=== PATIENT | male | born 1970 | race Caucasian/White ===

== ENCOUNTER 2017-03-26 08:38 | Emergency (ER) | payer SELFPAY ==
[2017-03-26 08:48] VITALS: BP 147/97; PULSE 97; RESP 20; TEMP 37.5; O2SAT 97; BMI 29.7
[2017-03-26 09:12] LABS: Strep Scrn Group A (Rapid) Negative (Negative)
--- NOTE | 2017-03-26 09:27 | HMH.EDGENADL ---
ED Disposition Clinical Impression: Viral infection Disposition: Home, Self-Care Condition on Discharge: Good Instructions: DI for Viral Upper Respiratory Infection -- Adult Prescriptions: Benzonatate [Tessalon Perle 100mg Cap] 100 mg PO TIDP PRN #20 cap PRN Reason: Cough Referrals: Darryl Neves MD [Primary Care Provider] - (If not better by Friday) Forms: Work/School Release - Critical Care Critical Care Time: No Attestation: On , the high probability of a clinically significant, sudden or life threatening deterioration of the following system(s) required my full and direct attention, intervention and personal management. The time I documented below is in addition to time spent performing reported procedures but includes the following listed in this critical care notation. Medical Decision Making Vital Signs: 03/26/17 08:48 03/26/17 10:10 Temperature 99.5 F 99.0 F Temperature Source Oral Oral Pulse Rate [Right Brachial] 97 H 90 Respiratory Rate 20 18 Blood Pressure [Right Arm] 147/97 145/90 Blood Pressure Mean [Right Arm] 113 108 Blood Pressure Source [Right Arm] Manual Cuff/ Doppler Blood Pressure Position [Right Arm] Sitting Sitting 02 Sat by Pulse Oximetry 97 98 Oxygen Delivery Method Room Air Room Air - Lab Data Lab Results 03/26/17 08:45: Influenza Type A Ag Negative, Influenza Type B Ag Negative 03/26/17 08:45: Group A Strep Rapid Negative Orders (Tests/Meds): ORDERS Category Date Time Status Strep Screen Confirmation Stat Micro 03/26/17 08:45 Received - Radiology Data #1 Image(s): Chest Image Reviewed: Yes I reviewed the patient's radiology results Preliminary Findings: Normal/NAD - Dylan Inquiry Pt receiving controlled substance: No General Adult HPI - General Chief complaint: Upper Respiratory Infection Stated complaint: poss flu Mode of Arrival: Ambulatory Limitations: No Limitations Description of Symptoms (Recalled from ER Triage Doc. by RN): PT C/O SNEEZING, RUNNY NOSE, COUGH, BODYACHES - History of Present Illness HPI narrative: The patient has been sick since Friday 4 days ago with body aches, cough, rhinorrhea, sore throat. Cough is nonproductive. His only chest pain is soreness from coughing. No shortness of breath. He does have a history of COPD. States he is not on any medicines. - Related Data Previous Rx's Medication Instructions Recorded Benzonatate [Tessalon Perle 100mg 100 mg PO TIDP PRN #20 cap 03/26/17 Cap] Allergies Allergy/AdvReac Type Severity Reaction Status Date / Time No Known Allergies Allergy Unverified 03/11/17 14:47 [facility] History I have reviewed the patient's past medical history: Yes Medical History: Denies:: Diabetes Mellitus Type 1, Diabetes Mellitus Type 2 - *Social History Smoking Status: Current every day smoker Tobacco Type: cigarettes Alcohol Intake: never - Psychiatric History Expresses thoughts of harming self/others: None Suicide Plan Description: No Plan ROS Obtained: Yes All systems reviewed & no additional complaints except as noted - Constitutional Reports body ache(s), Reports chills, Reports fatigue, Reports malaise - ENT Reports nasal discharge, Reports sore throat - Respiratory Reports cough, Reports pain with cough, Denies shortness of breath Physical Exam - General General appearance: alert, in no apparent distress - Head Head exam: atraumatic, normocephalic, normal inspection - Eye Eye exam: Present: normal appearance, PERRL, EOMI - ENT ENT exam: Present: normal oropharynx, TM's normal bilaterally - Neck Neck exam: Present: normal inspection, full ROM, trachea midline - Chest Chest inspection: Present: normal inspection, symmetric chest wall rise. Absent: tenderness - Respiratory Respiratory exam: Present: normal lung sounds bilaterally. Absent: respiratory distress - Cardiovascular Cardiovascular exam: Present: regular rate
--- NOTE | 2017-03-26 09:31 | XR_ITS ---
XR chest 2V HISTORY: ITS.REASON: cough, fever, tobacco use ORDERING PHYSICIAN: Erwin Langford MD PATIENT AGE: 46 years COMPARISON: 07/02/2016 FINDINGS: The cardiomediastinal silhouette and pulmonary vascularity are within normal limits. The lungs are clear without infiltrates, suspicious nodules, or pleural effusions. No acute bony abnormalities. IMPRESSION: Negative chest, no acute finding
[2017-03-26 10:10] VITALS: BP 145/90; PULSE 90; RESP 18; TEMP 37.2; O2SAT 98
[2017-03-26 10:24] VITALS: BP 155/75; PULSE 84; TEMP 37.2; O2SAT 98
== END 2017-03-26 10:29 | disposition home or self-care (01) ==
LOC: ER 10:23
PROVIDERS: Emergency Provider Emergency Medicine; Family Provider Emergency Medicine; PCP Emergency Medicine
DX: B34.9 Viral infection, unspecified (principal); F17.210 Nicotine dependence, cigarettes, uncomplicated
CPT/HCPCS: 71046; 87275; 87276; 87430; 99283

== ENCOUNTER → 2018-05-14 07:30 | Outpatient (CLI) | payer MEDICAID, SELFPAY ==
--- NOTE | 2018-05-14 07:35 | XR_ITS ---
XR knee RT 3V HISTORY: ITS.REASON: RT KNEE PAIN ORDERING PHYSICIAN: Viji Cordova PATIENT AGE: 48 years COMPARISON: None FINDINGS: No fracture or dislocation. No lytic or blastic change. Normal mineralization. No significant arthritic changes evident. No other significant findings IMPRESSION: Negative Knee
== END ==
PROVIDERS: PCP Nurse Practitioner Family; Visit Provider Nurse Practitioner Family
DX: M25.562 Pain in left knee (principal)
CPT/HCPCS: 73562

== ENCOUNTER 2018-06-29 17:00 | Outpatient (RCR) | payer MEDICAID, SELFPAY | END 2018-07-23 14:58 | disposition home or self-care (01) | LOC: PT 17:00 | PROVIDERS: Visit Provider Orthopaedic Surgery Adult Reconstructive Orthopaedic Surgery | DX: M25.561 Pain in right knee (principal) | CPT/HCPCS: 97010; 97014; 97033; 97110; 97163; G0283 ==

== ENCOUNTER 2021-05-03 08:18 | Emergency (ER) | payer OTHER, SELFPAY ==
[2021-05-03 08:19] VITALS: BP 155/82; PULSE 78; RESP 16; TEMP 36.5; O2SAT 98; BMI 33.9
--- NOTE | 2021-05-03 08:30 | XR_ITS ---
FINAL REPORT CLINICAL HISTORY: fall x 3 weeks ago, increasing pain of right upper arm ckr FINDINGS: RIGHT SHOULDER: 3 views of the right shoulder were obtained. There is no acute fracture or dislocation. There is mild AC joint degenerative change. There is no soft tissue abnormality. IMPRESSION: No acute fracture. Reviewed, Interpreted and Dictated by Jackson Kee III, MD Transcribed by Mandeep Templeton Authenticated by Jackson Kee III, MD on 05/03/2021 10:21:59 AM [facility]
--- NOTE | 2021-05-03 08:30 | XR_ITS ---
FINAL REPORT CLINICAL HISTORY: fall x 3 weeks ago, increasing pain of right upper arm FINDINGS: 2 views of the right humerus were obtained. There is no acute fracture or dislocation. The joint spaces appear intact. There is no acute soft tissue abnormality. IMPRESSION: No acute process. Reviewed, Interpreted and Dictated by Jackson Kee III, MD Transcribed by Mandeep Templeton Authenticated by Jackson Kee III, MD on 05/03/2021 10:22:01 AM [facility]
--- NOTE | 2021-05-03 08:47 | HMH.EDGENADL ---
ED Disposition Clinical Impression: Right shoulder injury Qualifiers: Encounter type: initial encounter Qualified Code(s): S49.91XA - Unspecified injury of right shoulder and upper arm, initial encounter Disposition: Home, Self-Care Condition on Discharge: Good Additional Instructions: Ibuprofen for pain. Follow-up with orthopedics, Dr. Waterman. Call for appointment. Prescriptions: Ibuprofen [Ibuprofen 800mg Tablet] 800 mg PO Q8HP PRN #15 tab PRN Reason: Moderate Pain Transmission Status: Pending to [id number] Referrals: Jai Sams III [Primary Care Provider] - Moisés Waterman JR, MD [Physician] - - Critical Care Critical Care Time: No Attestation: On 05/03/21, the high probability of a clinically significant, sudden or life threatening deterioration of the following system(s) required my full and direct attention, intervention and personal management. The time I documented below is in addition to time spent performing reported procedures but includes the following listed in this critical care notation. Medical Decision Making - Dylan Inquiry Pt receiving controlled substance: No Vital Signs: 05/03/21 08:19 Temperature 97.7 F Temperature Source Oral Pulse Rate [Radial] 78 Respiratory Rate 16 Blood Pressure [Right Arm] 155/82 H Blood Pressure Mean [Right Arm] 106 Blood Pressure Position [Right Arm] Sitting 02 Sat by Pulse Oximetry 98 Oxygen Delivery Method Room Air Orders (Tests/Meds): ORDERS Category Date Time Status Humerus XR right [XR humerus RT] Stat Exams 05/03/21 08:30 Taken XR shoulder RT min 2V Stat Exams 05/03/21 08:30 Taken - Radiology Data #1 Image(s): Shoulder, Humerus Image Reviewed: Yes I reviewed the patient's radiology image No fracture or dislocation seen. Possible cyst of humeral head. No acute process. Medical Decision Narrative: Findings most suggestive of a rotator cuff injury. Will refer to orthopedics. General Adult HPI - General Chief complaint: PAIN Stated complaint: AO [id number] right shoulder pain, home accident Time Seen by Provider: 05/03/21 08:47 Mode of Arrival: Ambulatory Limitations: No Limitations Description of Symptoms (Recalled from ER Triage Doc. by RN): TO ED PER PVT CAR WITH C/O RT SHOULDER AND UPPER ARM PAIN STATES SLIPPED ON ICE FELL LANDING ON RT SHOULDER 3 WEEKS AGO SEEN AT [facility] ED WITH NEG XRAYS. PT STATES SYMPTOMS HAVE NOT IMPROVED AND HAS HAD LIMITED ROM TO SHOULDER - History of Present Illness HPI narrative: States that 3 weeks ago he fell on the ice and landed on his right shoulder. He has had pain ever since then. He says the shoulder pain is diffuse and goes all the way down to his right elbow. He says he went to [facility] emergency department to have x-rays and they told him they were negative. He was referred to Dr. Li for orthopedic follow-up, but did not see him in follow-up because he does not like him. He has not seen his primary care provider either. No numbness or weakness. No other complaints. - Related Data Previous Rx's Medication Instructions Recorded Ibuprofen [Ibuprofen 800mg Tab] 800 mg PO Q8HP PRN #15 tab 03/18/18 methocarbamoL [Robaxin 750mg Tab] 750 mg PO QIDP PRN #20 tab 03/18/18 Ibuprofen [Ibuprofen 800mg 800 mg PO Q8HP PRN #15 tab 05/03/21 Tablet] Allergies Allergy/AdvReac Type Severity Reaction Status Date / Time No Known Allergies Allergy Verified 03/18/18 07:25 [facility] History - Hepatitis A Screen Drug use history?: No High risk sexual behaviors?: No History of sexually transmitted infection?: No Currently employed?: No Childcare worker?: No Do you have indoor plumbing?: Yes Do you have electricity?: Yes Attestation statement:: This patient has been screened for Hepatitis A risk factors. I have reviewed the patient's past medical history: Yes Medical History: Denies:: Diabetes Mellitus Type 1, Diabetes Mellitus Type
[2021-05-03 09:27] VITALS: BP 148/87; PULSE 74; RESP 17; TEMP 36.5; O2SAT 99
== END 2021-05-03 09:29 | disposition home or self-care (01) ==
PROVIDERS: Emergency Provider Emergency Medicine; PCP Family Medicine
DX: S49.91XA Unspecified injury of right shoulder and upper arm, initial encounter (principal); W00.0XXA Fall on same level due to ice and snow, initial encounter; Y92.89 Other specified places as the place of occurrence of the external cause; F17.210 Nicotine dependence, cigarettes, uncomplicated
CPT/HCPCS: 73030; 73060; 99282

== ENCOUNTER → 2023-01-30 23:09 | Outpatient (CLI) | payer OTHER, SELFPAY ==
[2023-01-30 18:11] LABS: Basophils # 0.1 K/mm3 (0-0.2); Basophils % 1.1 % (0.1-2.0); Eosinophils # 0.2 K/mm3 (0.0-0.4); Eosinophils % 1.9 % (0.1-12.0); Hematocrit 48.2 % (42.0-52.0); Hemoglobin 16.6 g/dL (14.1-18.0); Lymphocytes # 2.2 K/mm3 (0.7-4.5); Lymphocytes % 23.6 % (10-50); Mean Corpuscular HGB Conc 34.4 g/dL (31.8-35.4); Mean Corpuscular Hemoglobin 32.2 pg (27.0-31.2); Mean Corpuscular Volume 93.5 fl (80-94); Mean Platelet Volume 10.4 fl (7.4-10.4); Monocytes # 0.8 K/mm3 (0.1-1.0); Monocytes % 8.2 % (1.7-9.3); Neutrophils # 6.1 K/mm3 (1.8-7.8); Neutrophils % 65.2 % (37.0-80.0); Platelet Count 187 K/mm3 (142-424); Red Blood Count 5.16 M/mm3 (4.60-6.20); Red Cell Distribution Width 13.1 % (11.5-17.5); White Blood Count 9.3 K/mm3 (4.8-10.8)
[2023-01-30 20:24] LABS: Alanine Aminotransferase 37 U/L (12-78); Albumin Level 4.1 g/dl (3.5-5.0); Albumin/Globulin Ratio 1.5 (1.1-1.8); Alkaline Phosphatase 57 U/L (38-126); Anion Gap 13.3 mEq/L (5-15); Aspartate Amino Transferase 35 U/L (17-59); Bilirubin,Total 0.4 mg/dl (0.2-1.3); Blood Urea Nitrogen 17 mg/dl (9-20); Calcium 9.3 mg/dl (8.4-10.2); Carbon Dioxide 28 mmol/L (22.0-30.0); Chloride 100 mmol/L (98-107); Chol/HDL Ratio 3.8 (1-3.5); Cholesterol 109 mg/dl (140-200); Estimated Glomerular Filt Rate 70 ml/min (>60); GFR (African American) 84 ML/MIN (>60); Globulin 2.7 g/dL (1.3-3.2); Glucose 100 mg/dl (74-100); HDL Cholesterol 29 mg/dl (40-60); Magnesium 2.1 mg/dl (1.6-2.3); Potassium 4.3 mmoL/L (3.5-5.1); Sodium 137 mmol/L (136-145); Total Protein,Serum 6.8 g/dl (6.3-8.2); Triglycerides 192 mg/dl (30-150); VLDL Cholesterol 38 mg/dL (0-40)
[2023-01-30 20:35] LABS: Direct LDL Cholesterol 63.56 mg/dL (100-129)
[2023-01-30 20:54] LABS: Prostate Specific Ag Screen 0.7 ng/ml (0.0-4.0); Thyroid Stimulating Hormone 5.96 uIU/mL (0.465-4.68)
[2023-01-30 23:06] LABS: Hemoglobin A1C 5.8 % (4.0-6.0)
== END ==
PROVIDERS: PCP Nurse Practitioner Family; Visit Provider Nurse Practitioner Family
DX: E03.9 Hypothyroidism, unspecified (principal); R35.1 Nocturia; Z12.5 Encounter for screening for malignant neoplasm of prostate; Z79.899 Other long term (current) drug therapy
CPT/HCPCS: 80053; 80061; 83036; 83735; 84443; 85025; G0103

== ENCOUNTER 2023-05-02 16:26 | Outpatient (CLI) | payer OTHER, SELFPAY ==
[2023-05-02 17:26] LABS: Thyroid Stimulating Hormone 5.92 uIU/mL (0.465-4.68)
== END 2023-05-02 23:59 ==
LOC: LAB.DROPOF 16:27
PROVIDERS: PCP Nurse Practitioner Family; Visit Provider Nurse Practitioner Family
DX: E03.9 Hypothyroidism, unspecified (principal)
CPT/HCPCS: 84443

== ENCOUNTER 2023-07-18 14:07 | Outpatient (CLI) | payer OTHER, SELFPAY ==
--- NOTE | 2023-07-18 14:11 | CT_ITS ---
FINAL REPORT TECHNIQUE: Axial CT images of the chest were obtained without contrast. Low-dose protocol was utilized. This study was performed with techniques to keep radiation doses as low as reasonably achievable (ALARA). Individualized dose reduction techniques using automated exposure control or adjustment of mA and/or kV according to the patient's size were employed. CLINICAL HISTORY: lung cancer screening current smoker, 2 PPD, 35 years copd, emphysema COMPARISON: None FINDINGS: CT CHEST WITHOUT, LOW DOSE SCREENING CT Di Vol: 2.90 mGy DLP: 100.81 mGy*cm There are lymph nodes in the axilla bilaterally measuring up to 1.8 cm. There is no significant mediastinal mass or adenopathy. The heart size is normal. There is no pleural or pericardial effusion. The lung windows show a 4 mm nodule in the medial right upper lobe best seen on image 25 of series 4. There is scarring in the right middle lobe and lingula. Limited images of the upper abdomen demonstrate no acute findings. IMPRESSION: LR Category 2: 12 month follow-up low-dose chest CT is recommended. Reviewed, Interpreted and Dictated by Greg Velazquez MD Transcribed by Nickie Coates Authenticated and [facility]
[2023-07-18] MEDS: ALBUTEROL 0.083% 2.5 MG/3 ML NEB IH (15:48)
--- NOTE | 2023-07-18 15:48 | PC.NURSE ---
PFT and 6 Minute Walk Test completed without incident, Albuterol 0.083% given via HHN, per written protocol, Pt tolerated tx well.
== END 2023-07-18 23:59 | disposition home or self-care (01) ==
LOC: RAD 14:09
PROVIDERS: PCP Nurse Practitioner Family; Visit Provider Internal Medicine Pulmonary Disease
DX: F17.210 Nicotine dependence, cigarettes, uncomplicated (principal); Z12.2 Encounter for screening for malignant neoplasm of respiratory organs; R06.09 Other forms of dyspnea
CPT/HCPCS: 71271; 94060; 94618; 94726; 94729

== ENCOUNTER 2023-08-19 06:16 | Outpatient (CLI) | payer OTHER, SELFPAY ==
--- NOTE | 2023-08-19 06:17 | CA_ITS ---
APPROVED REPORT EXAM: Comprehensive 2D, Doppler, and color-flow Echocardiogram Elevator Attendant: Arlene Gonzalez RVT Ht: 5 ft 6 in Wt: 217lbs BSA: 2.07 BP: 143/62 mmHg Indications: CP,DYSPENA,SOA,SMOKER TDS-LIMITED WINDOWS R/T BODY HABITUS AND OVERLAYING LUNGS 2D Dimensions LA Volume 35.20 mL LA Volume Index 17.00 mL/m2 (M/F) 16-34 M-Mode Dimensions RVDd 3.24 cm (0.9-2.6) LA Diam 3.58 cm (1.9-4.0) LVDd 4.74 cm (3.5-5.7) LVDs 3.29 cm (3.5-5.7) IVSd 0.99 cm (0.6-1.1) PWd 0.99 cm (0.6-1.1) EF (Teich) 58.00% FS 30.60% EDV (Teich) 104.40 mL ESV (Teich) 43.80 mL LV Diastology E Decel Time 190 (160-240 msec) E/A Ratio 1.0 Aortic Valve DELILAH Index 1.32 cm2/m2 AoV Peak Deyvi. 147.0 (50-130 cm/s) AO Peak GR. 8.60 mmHg AO Mean GR. 5.10 (<5 mmHg) AO VTI 29.3 (18-25 cm) DELILAH (VTI) 2.80 (2.5-4.5 cm2) Mitral Valve MV E Max Deyvi. 80.0 (40-130 cm/s) MV A Velocity 81.0 (40-130 cm/s) E/A Ratio 0.99 MV PHT 56.0 ms Pulmonary Valve PV Peak Velocity 84.0 (50-150 cm/s) Tricuspid Valve TR P. Velocity 225.00 cm/s RAP Estimate 10.00 mmHg RVSP 30.30 mmHg Left Ventricle The left ventricle is normal size. The left ventricular systolic function is normal. The left ventricular ejection fraction is within the normal range. There is increased LV wall thickness. There is normal LV segmental wall motion. The left ventricular diastolic function is normal. LVEF is 55%. Right Ventricle Right ventricle is mildly dilated. Right ventricle is mildly hypokinetic. Atria The left atrium size is normal. The right atrium size is normal. There is no Doppler evidence of interatrial shunt. Aortic Valve The aortic valve is mildly thickened. There is no aortic valvular stenosis. No aortic regurgitation is present. Mitral Valve The mitral valve is normal in structure. No evidence of mitral valve stenosis. There is no mitral valve regurgitation noted. Tricuspid Valve The tricuspid valve leaflets are thin and pliable. Trace tricuspid regurgitation. There is insufficient TR jet to estimate RVSP. Pulmonic Valve The pulmonary valve is normal in structure. Trace pulmonic regurgitation. Great Vessels The aortic root is normal in size. The ascending aorta is normal in size. IVC is normal in size and collapses >50% with inspiration. Pericardium There is no pericardial effusion. Other Information Study Quality: Fair Conclusion Normal LV systolic function. Mildly dilated RV with mild reduction in RV function. No significant valvular stenosis or regurgitation. Electronically signed by : Mercy Louis MD 08/25/2023 11:29:46
--- NOTE | 2023-08-19 06:23 | NM_ITS ---
APPROVED REPORT Exam: Nuclear Stress Test Indication: Chest pain, SOB, Abnormal EKG, HTN, High cholesterol, Tobacco use, Family history Patient Location: Outpatient Stress Tech: Nicole Vazquez [place] Tech:Fannie Li, ARRT, RT (R)(N) Ht: 5 ft 6 in Wt: 220 lbs HR: 80 bpm BP: 133/81 mmHg BSA: 2.08 m2 TID: 1.20 BMI: 35.5 History: Chest pain, SOB, Abnormal EKG, HTN, High cholesterol, Tobacco use, Family history Procedure: Patient received 0.4 mg of intravenous Lexiscan, resting heart rate 80 bpm, resting blood pressure 133/81 mmHg, with Lexiscan maximum heart rate achieved was 103 bpm which is % of the maximum predicted heart rate and blood pressure was 188/81 mmHg. With Lexiscan, patient denied any complaint of chest pain. Patient was not able to do the prone images due to being too SOB. Cardiac Stress and Resting SPECT Images: Cardiac Stress and Resting SPECT images were obtained using technetium 99m Myoview 31.1 mCi stress and 10.33 mCi at rest. The patient could not lie on his abdomen. Therefore, phosphorus imaging could not be performed. This may affect the diagnostic interpretation of the study findings. Resting and stress imaging in supine position demonstrate a large sized, moderate, fixed perfusion defect in the inferior and inferoseptal LV bran. There is borderline increase in transient ischemic dilatation ratio (TID 1.20), suggestive of possible multivessel disease or balanced ischemia. Gated imaging demonstrates normal global LV systolic function. There is mild hypokinesis of the basal inferior LV wall. LVEF is calculated at 56%. Conclusion: Large sized, moderate, fixed perfusion defect in the inferior and inferoseptal LV brna. There is borderline increase in transient ischemic dilatation ratio (TID 1.20), suggestive of possible multivessel disease or balanced ischemia. Gated imaging demonstrates normal global LV systolic function. There is mild hypokinesis of the basal inferior LV wall. LVEF is calculated at 56%. Electronically signed by : Mercy Louis MD 08/25/2023 13:58:01
[2023-08-19] MEDS: SODIUM CHLORIDE 0.9% 10ML SYR (RAD ONLY) 10 ML IV ×2 (08:32)
[2023-08-19] MEDS: ISOTOPE MYOVIEW (PER STUDY) 1 DOSE IV (08:32)
--- NOTE | 2023-08-19 09:31 | CA_ITS ---
APPROVED REPORT Exam: Pharmacologic Technologist: Nicole Ayers, Ht: 5 ft 6 in Wt: 217 lbs BSA: 2.07 m2 HR: 77 bpm BP: 133/81 mmHg Rhythm: NSR Medical History Medications: Levothyroxine,,,,, Aspirin,,,,, Losartan,,,,, Temazepam,,,,, TAMSULOSIN,,,,, Albuterol,,,,, Methocarbamol,,,,, Toprol XL,,,,, RoSUVASTATIN,,,,, CHANTIX,,,,, Diclofenac Sodium,,,,, StIOLto Respimat,,,,, Stress Test Details Test: LEXISCAN Reason for pharmacologic stress test: physical limitation. HR Resting HR: 80 bpm Max Heart Rate (APMHR): 165 bpm Max HR Achieved: 103 bpm Target HR (85% APMHR): 140 bpm % of APMHR: 62 Recovery HR: 76 bpm BP Resting BP: 133.0/81.0 mmHg Max BP: 188.0/81.0 mmHg Recovery BP: 143.0/78.0 mmHg ECG Resting ECG: NSR Stress ECG: No significant ST changes Arrhythmia: None Clinical Exercise duration: 03:56 min Highest Stage Achieved: Exercise capacity: 1.0 METs Stress ECG Conclusion Symptoms: dizziness, dyspnea Arrhythmias/Ectopy: none ST-T Changes: No significant ST changes Conclusion: EKG unremarkable due to Lexiscan infusion. Test Summary REST . . . . . . . Resting REST 11:26 . . 80 . 133/ 81 . . Stage 1 . . . . . . . Myoview Injected Stage 1 01:00 . . 103 . . . . Stage 2 01:00 . . 90 . 188/ 81 . . Stage 3 01:00 . . 83 . . . . Stage 4 00:56 . . 82 . 150/ 63 . Stop exercise at 03:56 RECOVERY 01:00 . . 80 . . . . RECOVERY 02:00 . . 80 . 142/ 85 . . RECOVERY 03:00 . . 76 . 150/ 72 . . RECOVERY 03:30 . . 76 . 143/ 78 . . Electronically signed by : Mercy Louis MD 08/25/2023 13:53:19
== END 2023-08-19 23:59 | disposition home or self-care (01) ==
LOC: RAD 06:17
PROVIDERS: Visit Provider Physician Assistant
DX: R07.89 Other chest pain (principal); R06.09 Other forms of dyspnea; I45.10 Unspecified right bundle-branch block; R94.31 Abnormal electrocardiogram [ECG] [EKG]; Z72.0 Tobacco use
CPT/HCPCS: 78452; 93017; 93018; 93306; A9502

== ENCOUNTER 2023-09-29 07:35 | Day surgery (SDC) | payer OTHER, SELFPAY ==
[2023-09-29] VITALS (10 sets, daily range): BP systolic 100–165; BP diastolic 56–102; PULSE 54–72; RESP 17–18; TEMP 36.7; O2SAT 91–98; BMI 35.5
--- NOTE | 2023-09-29 07:16 | IR_ITS ---
APPROVED REPORT Patient Location: Outpatient Vice President Corporate Communications: DALTON Sanchez RT (R) PROCEDURES Left heart catheterization Left ventriculogram Selective coronary angiogram INDICATION Abnormal Myoview, Angina pectoris Informed consent was obtained prior to the procedure. COMPLICATIONS NONE Estimated Blood Loss: LESS THAN 10 ML TECHNIQUE One percent lidocaine used to anesthetize the right anterior aspect of the wrist. The right radial artery was accessed via the Seldinger technique. A 6 Icelandic sheath was placed in the right radial artery. 2.5 mg of Verapamil, 800 mcg of nitroglycerin, 1mg Lidocaine and 5000 U Heparin were given through the arterial sheath. The papa catheter was also used to perform left heart catheterization, left ventriculogram and selective coronary angiogram. At the end of the procedure the sheath was removed good hemostasis was achieved using Traclet band, patient was transferred to the postop holding area in stable condition. ANGIOGRAPHIC RESULTS The left main artery Normal The left anterior descending artery Has proximal 30% stenosis both before and after the first diagonal artery followed by a mid vessel 40 to 50% stenosis. A medium sized 2 mm first diagonal artery has an ostial proximal 80 to 90% stenosis The circumflex artery Massively large dominant with mild 10% luminal irregularities The right coronary artery Vestigial normal The DIAZ ventriculogram reveals Normal 65% The left ventricular end-diastolic pressure 10 mmHg IMPRESSION Mild proximal and moderate mid LAD disease as described above Severe stenosis and a 2 mm ostial proximal first diagonal artery which is the likely etiology for the angina Normal ejection fraction Normal LVEDP PLAN 1. I favor medical management at this time. Revascularized the diagonal artery with a require bifurcating stents in the proximal LAD into the first diagonal artery. This is highly amenable to medical management at this time 2. Maximize antianginal medication 3. LDL less than 55 to be achieved with high intensity statin 4. Should angina become recalcitrant he can be brought back to the [facility] and undergo revascularization at that time Electronically signed by : Uzair Campbell MD 09/29/2023 10:04:59
[2023-09-29 08:14] LABS: Basophils # 0.1 K/mm3 (0-0.2); Basophils % 1.3 % (0.1-2.0); Eosinophils # 0.3 K/mm3 (0.0-0.4); Eosinophils % 4.1 % (0.1-12.0); Hematocrit 49.7 % (42.0-52.0); Hemoglobin 16.6 g/dL (14.1-18.0); Lymphocytes # 2.3 K/mm3 (0.7-4.5); Lymphocytes % 27.9 % (10-50); Mean Corpuscular HGB Conc 33.4 g/dL (31.8-35.4); Mean Corpuscular Hemoglobin 31.1 pg (27.0-31.2); Mean Corpuscular Volume 93.2 fl (80-94); Mean Platelet Volume 9.4 fl (7.4-10.4); Monocytes # 0.5 K/mm3 (0.1-1.0); Monocytes % 5.5 % (1.7-9.3); Neutrophils # 5.1 K/mm3 (1.8-7.8); Neutrophils % 61.3 % (37.0-80.0); Platelet Count 199 K/mm3 (142-424); Red Blood Count 5.33 M/mm3 (4.60-6.20); Red Cell Distribution Width 13.5 % (11.5-17.5); White Blood Count 8.3 K/mm3 (4.8-10.8)
[2023-09-29 08:22] LABS: Anion Gap 8.2 mEq/L (5-15); Blood Urea Nitrogen 9 mg/dl (9-20); Calcium 9.5 mg/dl (8.4-10.2); Carbon Dioxide 28 mmol/L (22.0-30.0); Chloride 106 mmol/L (98-107); Creatinine Clearance Estimated 107 mL/min (50-200); Estimated Glomerular Filt Rate 69 ml/min (>60); GFR (African American) 84 ML/MIN (>60); Glucose 108 mg/dl (74-100); Potassium 4.2 mmoL/L (3.5-5.1); Sodium 138 mmol/L (136-145)
[2023-09-29] MEDS: NITROGLYCERIN 800MCG/8ML SYR (CATH LAB) 800 MCG IA (09:44)
[2023-09-29] MEDS: diphenhydrAMINE 50MG/ML VIAL 50 MG IV (09:44)
[2023-09-29] MEDS: HEPARIN 1,000 UNITS/ML 10ML VIAL (CATH LAB) 10000 UNIT IV (09:44)
[2023-09-29] MEDS: VERAPAMIL 2.5MG/ML 2ML VIAL 2.5 MG IV (09:44)
[2023-09-29] MEDS: MIDAZOLAM HCL 1MG/1ML 5ML VIAL 1 MG IV (09:45)
[2023-09-29] MEDS: HEPARIN 1,000 UNITS/500ML NS (CATH LAB) 3000 UNIT IV (09:45)
[2023-09-29] MEDS: FENTANYL 100MCG/2ML VIAL 50 MCG IV (09:45)
[2023-09-29] MEDS: LIDOCAINE 1% 10ML MDV 20 ML IJ (09:45)
[2023-09-29] MEDS: 0.9 % SODIUM CHLORIDE 500 ML 25 ML IV (09:45)
--- NOTE | 2023-09-29 10:43 | SUR.PHASEII ---
called and spoke with pt's ,June, regarding procedure completion and discharge time. states she will be here at discharge.
== END 2023-09-29 12:46 | disposition home or self-care (01) ==
PROVIDERS: Visit Provider Internal Medicine
DX: R93.1 Abnormal findings on diagnostic imaging of heart and coronary circulation (principal); F17.210 Nicotine dependence, cigarettes, uncomplicated; I25.118 Atherosclerotic heart disease of native coronary artery with other forms of angina pectoris; Z79.899 Other long term (current) drug therapy; J44.9 Chronic obstructive pulmonary disease, unspecified; I45.10 Unspecified right bundle-branch block; R94.31 Abnormal electrocardiogram [ECG] [EKG]
CPT/HCPCS: 80048; 85025; 93458; 99152; C1725; C1769; J1644; J2250; J3010

== ENCOUNTER 2023-12-05 08:50 | Outpatient (CLI) | payer OTHER, SELFPAY ==
[2023-12-05 17:25] LABS: Albumin Level 4.4 g/dl (3.5-5.0); Chloride 104 mmol/L (98-107); Potassium 4.7 mmoL/L (3.5-5.1); Sodium 140 mmol/L (136-145)
[2023-12-05 17:27] LABS: Blood Urea Nitrogen 13 mg/dl (9-20); Estimated Glomerular Filt Rate 69 ml/min (>60); GFR (African American) 84 ML/MIN (>60)
[2023-12-05 17:28] LABS: Alanine Aminotransferase 33 U/L (12-78); Albumin/Globulin Ratio 1.8 (1.1-1.8); Alkaline Phosphatase 56 U/L (38-126); Anion Gap 10.7 mEq/L (5-15); Aspartate Amino Transferase 33 U/L (17-59); Bilirubin,Total 0.7 mg/dl (0.2-1.3); Calcium 9.4 mg/dl (8.4-10.2); Carbon Dioxide 30 mmol/L (22.0-30.0); Chol/HDL Ratio 3.5 (1-3.5); Cholesterol 111 mg/dl (140-200); Globulin 2.5 g/dL (1.3-3.2); Glucose 73 mg/dl (74-100); HDL Cholesterol 32 mg/dl (40-60); Total Protein,Serum 6.9 g/dl (6.3-8.2); Triglycerides 142 mg/dl (30-150); VLDL Cholesterol 28 mg/dL (0-40)
[2023-12-05 17:39] LABS: Direct LDL Cholesterol 55.13 mg/dL (100-129)
[2023-12-05 17:58] LABS: Thyroid Stimulating Hormone 3.63 uIU/mL (0.465-4.68)
[2023-12-05 20:58] LABS: HIV (1&2) Antibody Rapid NONREACTIVE (NONREACTIVE)
[2023-12-07 10:10] LABS: HCV Ab Non Reactive (Non Reactive)
== END 2023-12-05 23:59 | disposition home or self-care (01) ==
LOC: LAB.DROPOF 12-08 12:46
PROVIDERS: PCP Family Medicine; Visit Provider Family Medicine
DX: E78.2 Mixed hyperlipidemia (principal); I10 Essential (primary) hypertension; Z72.0 Tobacco use
CPT/HCPCS: 80053; 80061; 83036; 84443; 86803; 87389

== ENCOUNTER 2025-01-04 08:00 | Outpatient (CLI) | payer OTHER, SELFPAY ==
--- OUTSIDE RECORDS SUMMARY | 2024-06-26 17:30 | XMS_ITS ---
Author Organization [facility] Address [address] [facility] [address] [place] [address] Care Team Providers Care Deputy Of Counter Intelligence Name Role Phone Silver Enriquez Primary Care Provider Migration, Provider Unavailable Unavailable [facility]IT [facility] Encounter Medications Medication SIG (Take, Route, Frequency, Duration) Notes Start Date End Date Status Rosuvastatin Calcium 10 MG 1 tab(s) orally once a day; Duration: 30 days 02/19/2022 Active Levothyroxine Sodium 50 MCG 1 tab(s) orally once a day; Duration: 30 days 02/19/2022 Active Flomax 0.4 MG 1 CAP(S) ORALLY ONCE A DAY AT BEDTIME; Duration: 30 DAYS *Please review and pick correct strength-formulatio n from [facility] options. If intended option is not shown, discontinue and re-order from Quick Search* 10/08/2021 Active Doxycycline Hyclate 100 MG 1 cap(s) orally 2 times a day; Duration: 10 day(s) 07/18/2022 Active predniSONE 20 MG 1 tab(s) orally once a day; Duration: 7 day(s) 07/18/2022 Active Albuterol Sulfate HFA 108 (90 Base) MCG/ACT 2 puff(s) inhaled every 6 hours as needed; Duration: 30 days 10/08/2021 Active Ipratropium-Albuterol 0.5-2.5 (3) MG/3ML 3 ml by nebulizer 4 times a day as needed; Duration: 30 day(s) Active Diclofenac Sodium 75 MG 1 tab(s) orally 2 times a day; Duration: 30 days Active Advair HFA 230-21 MCG/ACT 2 puff(s) inhaled 2 times a day; Duration: 30 days Active Temazepam 30 MG 1 cap(s) orally once a day (at bedtime); Duration: 30 days 10/16/2022 Active AERO CHAMBER DIRECTED ORALLY DIRECTED; Duration: 30 DAY(S) *Please review for potential replacement for e-prescription and drug interaction check* 04/19/2019 Active Encounters Encounter Location Date Provider Diagnosis [facility] JOVAN [address] [facility] [address] [place] [address] 06/26/2024 Provider Migration COPD exacerbation J44.1 ; Chronic insomnia F51.04 ; COPD (chronic obstructive pulmonary disease) J44.9 ; Benign prostatic hyperplasia with lower urinary tract symptoms N40.1 ; Bilateral primary osteoarthritis of knee M17.0 ; Hypothyroidism (acquired) E03.9 and Hyperlipemia, idiopathic familial E78.5 Assessments Encounter Date Diagnosis (ICD Code) Assessment Notes Treatment Notes Treatment Clinical Notes Section Notes 06/26/2024 COPD exacerbation (ICD-10 - J44.1) 06/26/2024 Chronic insomnia (ICD-10 - F51.04) 06/26/2024 COPD (chronic obstructive pulmonary disease) (ICD-10 - J44.9) 06/26/2024 Benign prostatic hyperplasia with lower urinary tract symptoms (ICD-10 - N40.1) 06/26/2024 Bilateral primary osteoarthritis of knee (ICD-10 - M17.0) 06/26/2024 Hypothyroidism (acquired) (ICD-10 - E03.9) 06/26/2024 Hyperlipemia, idiopathic familial (ICD-10 - E78.5) Plan Of Treatment Medication Medication Name Sig Start Date Stop Date Notes Rosuvastatin Calcium 10 MG 1 tab(s) orally once a day; Duration: 30 days 02/19/2022 Levothyroxine Sodium 50 MCG 1 tab(s) orally once a day; Duration: 30 days 02/19/2022 Flomax 0.4 MG 1 CAP(S) ORALLY ONCE A DAY AT BEDTIME; Duration: 30 DAYS 10/08/2021 *Please review and pick correct strength-formulation from [employer] options. If intended option is not shown, discontinue and re-order from Quick Search* Doxycycline Hyclate 100 MG 1 cap(s) orally 2 times a day; Duration: 10 day(s) 07/18/2022 predniSONE 20 MG 1 tab(s) orally once a day; Duration: 7 day(s) 07/18/2022 Albuterol Sulfate HFA 108 (90 Base) MCG/ACT 2 puff(s) inhaled every 6 hours as needed; Duration: 30 days 10/08/2021 Diclofenac Sodium 75 MG 1 tab(s) orally 2 times a day; Duration: 30 days Advair HFA 230-21 MCG/ACT 2 puff(s) inhaled 2 times a day; Duration: 30 days Temazepam 30 MG 1 cap(s) orally once a day (at bedtime); Duration: 30 days 10/16/2022 Progress Notes * Sylwia CRANDALLeDOB:1970 (54 yo M)Acc No.[id number]:06/26/2024 Patient: Balaji NELSON Provider: Pato Lea :1970 A ge:54 Y S ex:Male Date:06/26/2024 Address:[address] [place] [address] [place], [id number] Pcp:Sivler Enriquez Subjective: * Chief Complaints: * 1 . Mult[facility] To [facility] Conversion Encounter. * Medical History: * Medications: T aking AERO CHAMBER DIRECTED ORALLY DIRECTED , Notes to Pharmacist: *Please review for potential replacement for e-prescription and drug interaction check*, Taking Ipratropium-Albuterol 0.5-2.5 (3) MG/3ML Solution 3 ml by nebulizer 4 times a day as needed Objective: * Vitals: Assessment: * Assessment: 1. C OPD exacerbation - J44.1 (Primary) 2 . C hronic insomnia - F51.04 3 . B enign prostatic hyperplasia with lower urinary tract symptoms - N40.1 ? 4 . C OPD (chronic obstructive pulmonary disease) - J44.9 5 . B ilateral primary osteoarthritis of knee - M17.0 6 . H ypothyroidism (acquired) - E03.9 7 . H yperlipemia, idiopathic familial - E78.5 Plan: * Treatment: 2. C hronic insomnia Refill Temazepam Capsule, 30 MG, 1 cap(s), orally, once a day (at bedtime), 30 days, 30, Refills 2.? 3. B enign prostatic hyperplasia with lower urinary tract symptoms Refill Flomax CAPSULE, 0.4 MG, 1 CAP(S), ORALLY, ONCE A DAY AT BEDTIME, 30 DAYS, 30, Refills 2, Notes to Pharmacist: *Please review and pick correct strength-formulation from [employer] options. If intended option is not shown, discontinue and re-order from Quick Search*. 4. C OPD (chronic obstructive pulmonary disease) Refill Advair HFA Aerosol, 230-21 MCG/ACT, 2 puff(s), inhaled, 2 times a day, 30 days, 1, Refills 2; R efill Albuterol Sulfate HFA Aerosol Solution, 108 (90 Base) MCG/ACT, 2 puff(s), inhaled, every 6 hours as needed, 30 days, 1, Refills 2. 5. B ilateral primary osteoarthritis of knee Refill Diclofenac Sodium Tablet Delayed Release, 75 MG, 1 tab(s), orally, 2 times a day, 30 days, 60, Refills 2. 6. H ypothyroidism (acquired) Refill Levothyroxine Sodium Tablet, 50 MCG, 1 tab(s), orally, once a day, 30 days, 30, Refills 2.? 7. H yperlipemia, idiopathic familial Refill Rosuvastatin Calcium Tablet, 10 MG, 1 tab(s), orally, once a day, 30 days, 30, Refills 2.? * * Electronic signature of Prov ider Migration on 01/05/2025 at 12:08 PM EDT Sign off status: Pending * Provider: Pato gaspar Migration Date: 0 06/26/2024 Generated for Marcelina plasencia/Dl/Ehsan on: 1 12:08 PM EDT
[2025-01-04 19:30] LABS: Hematocrit 48.7 % (42.0-52.0); Hemoglobin 15.5 g/dL (14.1-18.0); Immature Granulocytes % 0.2 %; Mean Corpuscular HGB Conc 31.8 g/dL (31.8-35.4); Mean Corpuscular Hemoglobin 30.2 pg (27.0-31.2); Mean Corpuscular Volume 94.7 fl (80-94); Nucleated Red Blood Cells % 0 %; Platelet Count 201 K/mm3 (142-424); Red Blood Count 5.14 M/mm3 (4.60-6.20); Red Cell Distribution Width-SD 45.0 fL; White Blood Count 8.5 K/mm3 (4.8-10.8)
[2025-01-04 20:05] LABS: Albumin Level 4.2 g/dl (3.5-5.0)
[2025-01-04 20:06] LABS: Chloride 99 mmol/L (98-107); Potassium 4.6 mmoL/L (3.5-5.1); Sodium 138 mmol/L (136-145)
[2025-01-04 20:08] LABS: Alanine Aminotransferase 29 U/L (12-78); Anion Gap 16.6 mEq/L (5-15); Aspartate Amino Transferase 37 U/L (17-59); Bilirubin,Total 0.6 mg/dl (0.2-1.3); Blood Urea Nitrogen 13 mg/dl (9-20); Carbon Dioxide 27 mmol/L (22.0-30.0); Creatinine,Serum 1.00 mg/dl (0.66-1.25); Estimated Glomerular Filt Rate 77 ml/min (>60); GFR (African American) 94 ML/MIN (>60)
[2025-01-04 20:09] LABS: Albumin/Globulin Ratio 1.6 (1.1-1.8); Alkaline Phosphatase 57 U/L (38-126); Calcium 8.8 mg/dl (8.4-10.2); Cholesterol 123 mg/dl (140-200); Globulin 2.6 g/dL (1.3-3.2); Glucose 71 mg/dl (74-100); HDL Cholesterol 33 mg/dl (40-60); Total Protein,Serum 6.8 g/dl (6.3-8.2); Triglycerides 132 mg/dl (30-150)
[2025-01-04 20:38] LABS: Thyroid Stimulating Hormone 7.72 uIU/mL (0.465-4.68)
--- OUTSIDE RECORDS SUMMARY | 2025-01-05 12:09 | XMS_ITS | Encounter Summary ---
Author Organization [employer] ([place], [place], [place], [place]) Address [address] [place] [address] Care Team Providers Care Clinical Education Specialist Name Role Phone Unavailable Primary Care Provider Unavailabl e Encounter Details Date Type Department Care Team (Late st Contact Info) Description 04/05/2018 Transcribed Document [facility] [place] [address] ProviderStephan [place] [address] Social History Tobacco Use Types Packs/Day Years Used Date Smoking Tobacco: Never Assessed Sex and Gender Information Value Date Recorded Sex Assigned at Male 09/18/2021 5:57 PM CDT Legal Sex Male 5:57 PM CDT Gender Identity Male 09/18/2021 5:57 PM CDT Sexual Orientation Not on file documented as of this encounter Miscellaneous Notes * Cerner Conversion Note - Stephan ProviderMD - 04/05/2018 2:52 PM MASTIC FLOOR LAYER [address] [place] [address] Patient Information Name: BALAJI CRANDALL Age: 48 Years Date of : 1970 Arrival Time: 04/05/2018 13:55:00 Diagnosis Primary Care Physician: JESSICA SPEAR DR Provider Information Primary Provider: Secondary Provider: PRANAV CRANDALLFOREIGN Malik has been given the following list of patient education materials, prescriptions and follow-up instructions: Follow-up Instructions: Patient Education Materials: Allergies: No Known Medication Allergies Medication Information: Laboratory or Other Results This Visit (last charted value for your 04/05/2018 visit) No Laboratory or Other Results This Visit Medication Comment: Procedures: Laboratory Orders No laboratory orders were placed. Radiology Orders No radiology orders were placed. Cardiology Orders No cardiology orders were placed. This statement is to verify that BALAJI CRANDALL was seen at [facility] Emergency Department on ,04/05/2018 14:52:45. This is not a work excuse, if a work excuse was needed it will be in addition to this statement as a separate form. IMPORTANT: The examination and treatment you have received in the Emergency Department has been done to provide an appropriate evaluation and stabilizing treatment on an emergency basis only. Given the limited resources, it is not meant to be a substitute for complete medical care. The follow-up doctor you named will receive a copy of your records and all test reports. IT IS IMPORTANT THAT YOU SCHEDULE A FOLLOW-UP APPOINTMENT AND ARE RE-EVALUATED. You should report any new complaints, symptoms, or remaining problems at that time. IT IS IMPOSSIBLE FOR THE EMERGENCY DEPARTMENT TO RECOGNIZE AND TREAT ALL ELEMENTS OF INJURY OR ILLNESS IN A SINGLE VISIT. If you have been referred to a specialist physician, it means that we believe you may have a condition that requires the expertise of a specialist. KEEP IN MIND THAT THE SPECIALIST HAS HIS/HER OWN OFFICE POLICIES WHICH MAY REQUIRE PROPER INSURANCE OR PAYMENT UP FRONT BEFORE THE SPECIALIST WILL SEE YOU. It is your responsibility to call the specialist physician to make an appointment. We do not have the ability to identify specialists/physicians that work with specific insurance companies. Please be advised that all financial charges or billing practices are determined by that practice, not the hospital. If your insurance company requires that you see a specialist from their approved list, it is your responsibility to contact your insurance company to make those arrangements. It is also your responsibility to follow any other requirements of your insurance company necessary to obtain coverage for claims submitted. If you had special tests, such as EKG???s or X-rays, the interpretation of your tests given to you by the Emergency Dept. Physician is a preliminary report. Some fractures and illnesses fail to show up on preliminary tests. We will review them again within 24-48 hours. We will call you if there are any new suggestions. If your symptoms continue notify your physician. After you leave, you should follow the instructions below. In all events, you may obtain a copy of your Emergency Department visit from Medical Records. Please call to be directed to this department. We will bill your insurance; however, you are responsible today for any co-pay amounts. You will receive a separate bill for any services you may have received including: emergency, radiology, or pathology physicians. Please be sure we have an accurate contact phone number and address, should we need to call you for any reason. CIGARETTE SMOKING: The facts are clear; cigarette smoking will shorten your life. Smoking can cause many illnesses along the way. As a healthcare provider, ANNIE recommends that you stop smoking. Assistance with quitting is available by contacting 1-656-TEMV-NOW. This is a free resource providing counseling, support, and referral. Or you may contact your personal physician. As part of your treatment plan, your physician may have prescribed a limited course of a controlled substance. This medication may be given to help people with moderate or severe pain or for other medical conditions, but there are risks involved with treatment. Common side effects may include nausea, constipation, drowsiness, sweating, itching, dry mouth, and rash. More serious side effects may include cognitive and motor impairment, like problems with thinking, concentrating, alertness, and movement (e.g. slowed reflexes), and driving and operating heavy machinery can be dangerous. It is important for you to talk to your physician if you have these side effects or questions. These controlled substances can produce physical dependence and be habit-forming if taken for an extended period of time, which means that the body has gotten used to them and may experience withdrawal symptoms if they are abruptly stopped. Withdrawal symptoms can include runny nose, sweating, goose bumps, diarrhea, abdominal cramping, rapid heartbeat, difficulty sleeping, and nervousness. The home medications listed are only as accurate as the information you provided. Please continue taking all of your medications prescribed by your Primary Care Provider unless specifically told to change or discontinue the medication. Please direct any questions regarding your home medications to your Primary Care Provider. YOU ARE THE MOST IMPORTANT FACTOR IN YOUR RECOVERY. ?? Follow your instructions carefully ?? Take your medicines as prescribed ?? Most important, see a provider as discussed. If you do not have a provider, we can provide a list of clinics Confidential This message and accompanying documents are covered by Electronic Communications Privacy Act 18 U.S.C. ???Sections 8349-0946,?? and contain information intended for the specified individual(s) only. This information is confidential. If you are not the intended recipient or an agent responsible for delivering it to the intended recipient, you are hereby notified that you have received the document in error and that any review, dissemination, copying, or the taking of any action based on the contents of this information is strictly prohibited. If you have received this communication in error, please notify us immediately by email, and delete the original message. STROKE is an EMERGENCY [employer] ACT F.A.S.T! FACE ?? Facial droop ?? Uneven smile ARM ?? Arm numbness ?? Arm weakness SPEECH ?? Slurred speech ?? Difficulty speaking or understanding TIME ?? Call 911 and get to the hospital immediately Have the ambulance go to the nearest stroke center. STROKE Risk Factors High blood pressure High cholesterol Heart Disease Diabetes Smoking Heavy alcohol use Physical inactivity and obesity Atrial Fibrillation (irregular heartbeat) Family history of stroke Acknowledgment I hereby acknowledge receipt of these instructions and information above. I understand that I have received Emergency Treatment only which is not a substitute for complete medical care and acknowledge that all of my medical problems may not be known, identified, or treated prior to my release. I UNDERSTAND THE NEED TO ARRANGE FOLLOW-UP CARE WITH THE PHYSICIAN INDICATED. I UNDERSTAND THAT I SHOULD CONTACT MY PHYSICIAN IMMEDIATELY OR RETURN TO THE EMERGENCY DEPARTMENT IF MY CONDITION WORSENS, FAILS TO IMPROVE, OR NEW SYMPTOMS APPEAR. Vital Signs B/P PULSE RESP. RATE TEMPERATURE PULSE OX Signature of Emergency Provider Date / Time Signature of Emergency Nurse Date / Time Reminder: Be sure to sign up for the [facility] patient portal, which gives you 14/10 access to your medical information ??? including these discharge instructions ??? using your computer, smartphone, or tablet. Just go to [facility] to get started. Questions? Call . Acknowledgment I hereby acknowledge receipt of these instructions and information above. I understand that I have received Emergency Treatment only which is not a substitute for complete medical care and acknowledge that all of my medical problems may not be known, identified, or treated prior to my release. I UNDERSTAND THE NEED TO ARRANGE FOLLOW-UP CARE WITH THE PHYSICIAN INDICATED. I UNDERSTAND THAT I SHOULD CONTACT MY PHYSICIAN IMMEDIATELY OR RETURN TO THE EMERGENCY DEPARTMENT IF MY CONDITION WORSENS, FAILS TO IMPROVE, OR NEW SYMPTOMS APPEAR. Signature of Patient / Responsible Person Date / Time Please provide a telephone number where you can be reached. The best time to call is between: It is permissible to leave a message if no answer: Yes____ No____ Nurse Providing Instructions: Emergency Physician: documented in this encounter Plan of Treatment Not on file documented as of this encounter Visit Diagnoses Not on filedocumented in this encounter
--- OUTSIDE RECORDS SUMMARY | 2025-01-05 12:09 | XMS_ITS | Clinical Summary ---
Author Organization [employer] ([place], [place], [place], [place]) Address [address] [place] [address] Care Team Providers Care Hall Coordinator Name Role Phone Unavailable Primary Care Provider Unavailabl e Social History Tobacco Use Types Packs/Day Years Used Date Smoking Tobacco: Never Assessed Sex and Gender Information Value Date Recorded Sex Assigned at Male 09/18/2021 5:57 PM CDT Legal Sex Male 5:57 PM CDT Gender Identity Male 09/18/2021 5:57 PM CDT Sexual Orientation Not on file Plan of Treatment Not on file
--- OUTSIDE RECORDS SUMMARY | 2025-01-05 12:09 | XMS_ITS | Encounter Summary ---
Author Organization [employer] ([place], [place], [place], [place]) Address [address] [place] [address] Care Team Providers Care Microsoft Bi Architect Name Role Phone Unavailable Primary Care Provider Unavailabl e Encounter Details Date Type Department Care Team (Late st Contact Info) Description 03/27/2018 Transcribed Document [facility] [place] [facility] [place] [address] ProviderStephan MD [facility] [place] [address] Social History Tobacco Use Types Packs/Day Years Used Date Smoking Tobacco: Never Assessed Sex and Gender Information Value Date Recorded Sex Assigned at Male 09/18/2021 5:57 PM CDT Legal Sex Male 5:57 PM CDT Gender Identity Male 09/18/2021 5:57 PM CDT Sexual Orientation Not on file documented as of this encounter Miscellaneous Notes * Cerner Conversion Note - Stephan ProviderMD - 03/27/2018 11:04 AM RESEARCH ELECTRICIAN ED Assessment Entered On: 03/27/2018 12:50 EST Performed On: 03/27/2018 12:48 EST by Katie Bonilla RN ED Quick Look Assessment Level of Consciousness : Alert, Awake Affect/Behavior : Appropriate, Calm, Cooperative Orientation : Oriented x 4 Skin Color : Other: pink Skin Temperature : Warm Katie Bonilla RN - 03/27/2018 12:48 EST ED General-Functional Assess Information Obtained From : Patient Preferred Communication Mode : Verbal Communication Barrier : None Primary Language : [place] Helen[place] Any Spiritual/Cultural Needs or Requests : No Currently in Unsafe Situation : No Katie Bonilla RN - 03/27/2018 12:48 EST Social Habits Smoking Status : 10 or more cigarettes (1/2 pack or more)/day in last 30 days Smokeless Tobacco Status : Never Desires Tobacco Cessation Medication : No Reason for No Tobacco Cessation Medication : Refuses FDA approved medications Desires Tobacco Cessation Calc : 1 Katie Bonilla RN - 03/27/2018 12:48 EST Social History (As Of: 03/27/2018 12:50:15 EST) Tobacco: 10 or more cigarettes (1/2 pack or more)/day in last 30 days Smoking Status. (Last Updated: 03/27/2018 11:16:08 EST by NAI MI) Respiratory Breath Sounds Auscultated : Posterior, Anterior, Laterally Respiratory Assessment WDL : WDL with exceptions Cough : Productive Katie Bonilla RN - 03/27/2018 12:48 EST Breath Sounds Assessment Grid All Lobes Breath Sounds : Diminished TRACE : Diminished LLL : Diminished RUL : Diminished RML : Diminished RLL : Diminished Katie Bonilla RN - 03/27/2018 12:48 EST Respiratory Pattern Description : Regular Katie Bonilla RN - 03/27/2018 12:48 EST Oxygen Therapy Oxygen Therapy Mode : Room air Katie Bonilla RN - 03/27/2018 12:48 EST Musculoskeletal Musculoskeletal Assessment WDL : WDL with exceptions Musculoskeletal Assessment Comment : Pt C/O L rib pain X1 day, states I broke a rib coughing. skin intact, resps even and nonlabored. Katie Bonilla RN - 03/27/2018 12:48 EST documented in this encounter Plan of Treatment Not on file documented as of this encounter Visit Diagnoses Not on filedocumented in this encounter
--- OUTSIDE RECORDS SUMMARY | 2025-01-05 12:09 | XMS_ITS | Encounter Summary ---
Author Organization [employer] ([place], [place], [place], [place]) Address [address] [place] [address] Care Team Providers Care Reception Specialist Name Role Phone Unavailable Primary Care Provider Unavailabl e Encounter Details Date Type Department Care Team (Late st Contact Info) Description 03/27/2018 Transcribed Document [facility] [place] [facility] [place] [address] ProviderStephan MD [facility] [place] [address] Social History Tobacco Use Types Packs/Day Years Used Date Smoking Tobacco: Never Assessed Sex and Gender Information Value Date Recorded Sex Assigned at Male 09/18/2021 5:57 PM CDT Legal Sex Male 5:57 PM CDT Gender Identity Male 09/18/2021 5:57 PM CDT Sexual Orientation Not on file documented as of this encounter Miscellaneous Notes * Cerner Conversion Note - Historical ProviderMD - 03/27/2018 1:08 PM MANAGER OF TAX ED Discharge Vital Signs Entered On: 03/27/2018 13:08 EST Performed On: 03/27/2018 13:08 EST by Katie Bonilla RN ED Discharge Vital Signs Peripheral Pulse Rate : 90 bpm Oxygen Saturation : 100 % Oxygen Therapy Mode : Room air Katie Bonilla RN - 03/27/2018 13:08 EST documented in this encounter Plan of Treatment Not on file documented as of this encounter Visit Diagnoses Not on filedocumented in this encounter
--- OUTSIDE RECORDS SUMMARY | 2025-01-05 12:09 | XMS_ITS | Encounter Summary ---
Author Organization [employer] ([place], [place], [place], [place]) Address [address] [place] [address] Care Team Providers Care Program Checker Name Role Phone Unavailable Primary Care Provider Unavailabl e Encounter Details Date Type Department Care Team (Late st Contact Info) Description 04/06/2018 Transcribed Document [facility] 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 [address] [place] [address] PERSON INFORMATION Name BALAJI CRANDALL Age 48 Years 1970 Sex Male Language Macedonian PCP JACQUIE RAE NP-FAM Marital Status Med Service Emergency Medicine Acct# Arrival 04/06/2018 04:58:00 Visit Reason Rib/trunk pain-swelling; Chest pain - Pleuritic; PNEUMONIA GETTING WORSE Acuity 3 - Urgent LOS 000 01:08 Depart Date: 04/06/18 06:06 AM Address: [address] [id number] Comment: PROVIDER INFORMATION Provider Role Assigned Unassigned VANIA SANDOVAL RN ED Nurse 04/06/2018 05:23:10 JOEY URIBE MD ED Physician 04/06/2018 05:42:47 DIAGNOSIS Chest wall pain PHYS DOC NOTES VITALS INFORMATION Vital Sign Triage Latest Temp Source Oral Oral Temp Mode Fahrenheit Fahrenheit Temp Fahrenheit 97.1 Deg F 97.1 Deg F Temp Celsius 02 Sat 100 % 100 % Respiratory Rate 18 Breaths/Min 18 Breaths/Min Peripheral Pulse Rate 71 bpm 71 bpm Apical Heart Rate Blood Pressure 187 mmHg / 99 mmHg 187 mmHg / 99 mmHg Comment: MEDICAL INFORMATION Allergy Info: No Known Medication Allergies Medications: Prescription Display benzonatate (benzonatate 200 mg oral capsule) 1 Cap, Oral, Cap, TID, PRN as needed for cough, do not crush or chew KEEP AWAY FROM CHILDREN, X 7 Day(s), # 21 Cap, 0 Refill(s) ibuprofen (ibuprofen 800 mg oral tablet) 1 Tab, Oral, Tab, Q8H, PRN Pain (Moderate 4-6), X 10 Day(s), # 30 Tab, 0 Refill(s) Comment: DISCHARGE INFORMATION Discharge Disposition: Home Discharge Location: PATIENT EDUCATION INFORMATION Instructions: Chest Wall Pain Follow up: With: Address: When: Follow up with primary care provider Within 2 to 3 days Comments: Use the cough medicine and follow up with you FAMILY Dr by Friday return any problems With: Address: When: JACQUIE RAE Within 2 to 3 days Comment: documented in this encounter Plan of Treatment Not on file documented as of this encounter Visit Diagnoses Not on filedocumented in this encounter
--- OUTSIDE RECORDS SUMMARY | 2025-01-05 12:09 | XMS_ITS | Encounter Summary ---
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 ED Discharge Entered On: 03/27/2018 13:08 EST Performed On: 03/27/2018 13:08 EST by Katie Bonilla RN Discharge Process Patient Disposition : Discharge Personal Belongings With Patient : Yes Patient Education Completed : Yes Teaching Evaluation : Verbalizes understanding IV Discontinued : Not applicable Nursing Documentation Completed : Yes Katie Bonilla RN - 03/27/2018 13:08 EST ED Discharge Discharge To : Home with ambulatory/outpatient follow-up Mode Of Departure : Ambulatory Accompanied By : Unaccompanied Discharge Instructions Reviewed With, Opportunity For Questions Given : Patient Prescriptions Given to Patient : Yes Katie Bonilla RN - 03/27/2018 13:08 EST Electronically signed by Vick[facility] Conversion Support Service Tech Cerner at 07/10/2022 6:49 PM CDT documented in this encounter Plan of Treatment Not on file documented as of this encounter Visit Diagnoses Not on filedocumented in this encounter
--- OUTSIDE RECORDS SUMMARY | 2025-01-05 12:09 | XMS_ITS | Encounter Summary ---
Author Organization [employer] ([place], [place], [place], [place]) Address [address] [place] [address] Care Team Providers Care Pension Administrator Name Role Phone Unavailable Primary Care Provider Unavailabl e Encounter Details Date Type Department Care Team (Late st Contact Info) Description 03/27/2018 Transcribed Document [facility] [place] [facility] [place] [address] ProviderStephan MD [facility] [place] [address] Social History Tobacco Use Types [...] Conversion Note - Stephan ProviderMD - 03/27/2018 1:08 PM COMPOUND MIXER [address] [place] [address] Patient Information Name: BALAJI CRANDALL Age: 47 Years Date of : 1970 Arrival Time: 03/27/2018 11:04:00 Diagnosis Cough; Elevated blood pressure reading; Pneumonia Primary Care Physician: JACQUIE RAE NP-FAM Provider Information Primary Provider: CLARE BROCK Secondary Provider: BALAJI CRANDALL [place] has been given the following list of patient education materials, prescriptions and follow-up instructions: Follow-up Instructions: With: Address: When: JACQUIE RAE Within 2 to 3 days With: Address: When: [facility] Within 2 to 3 days Comments: Please contact the Patient Resource Center at or if you need assistance finding a Primary Care Provider Patient Education Materials: Community-Acquired Pneumonia, Adult Pneumonia is an infection of the lungs. There are different types of pneumonia. One type can develop while a person is in a hospital. A different type, called community-acquired pneumonia, develops in people who are not, or have not recently been, in the hospital or other health care facility. What are the causes? Pneumonia may be caused by bacteria, viruses, or funguses. Community-acquired pneumonia is often caused by Streptococcus pneumonia bacteria. These bacteria are often passed from one person to another by breathing in droplets from the cough or sneeze of an infected person. What increases the risk? The condition is more likely to develop in: ??? People who have?chronic diseases, such as chronic obstructive pulmonary disease (COPD), asthma, congestive heart failure, cystic fibrosis, diabetes, or kidney disease. ??? People who have?early-stage or late-stage HIV. ??? People who have?sickle cell disease. ??? People who have?had their spleen removed (splenectomy). ??? People who have?poor dental hygiene. ??? People who have?medical conditions that increase the risk of breathing in (aspirating) secretions their own mouth and nose. ??? People who have?a weakened immune system (immunocompromised). ??? People who smoke. ??? People who?travel to areas where pneumonia-causing germs commonly exist. ??? People who?are around animal habitats or animals that have pneumonia-causing germs, including birds, bats, rabbits, cats, and farm animals. What are the signs or symptoms? Symptoms of this condition include: ??? A?dry cough. ??? A wet (productive) cough. ??? Fever. ??? Sweating. ??? Chest pain, especially when breathing deeply or coughing. ??? Rapid breathing or difficulty breathing. ??? Shortness of breath. ??? Shaking chills. ??? Fatigue. ??? Muscle aches. How is this diagnosed? Your health care provider will take a medical history and perform a physical exam. You may also have other tests, including: ??? Imaging studies of your chest, including X-rays. ??? Tests to check your blood oxygen level and other blood gases. ??? Other tests on blood, mucus (sputum), fluid around your lungs (pleural fluid), and urine. If your pneumonia is severe, other tests may be done to identify the specific cause of your illness. How is this treated? The type of treatment that you receive depends on many factors, such as the cause of your pneumonia, the medicines you take, and other medical conditions that you have. For most adults, treatment and recovery from pneumonia may occur at home. In some cases, treatment must happen in a hospital. Treatment may include: ??? Antibiotic medicines, if the pneumonia was caused by bacteria. ??? Antiviral medicines, if the pneumonia was caused by a virus. ??? Medicines that are given by mouth or through an IV tube. ??? Oxygen. ??? Respiratory therapy. Although rare, treating severe pneumonia may include: ??? Mechanical ventilation. This is done if you are not breathing well on your own and you cannot maintain a safe blood oxygen level. ??? Thoracentesis. This procedure?removes fluid around one lung or both lungs to help you breathe better. Follow these instructions at home: ??? Take tewh-osr-zcbnczl and prescription medicines only as told by your health care provider. ? Only take?cough medicine if you are losing sleep. Understand that cough medicine can prevent your body?s natural ability to remove mucus from your lungs. ? If you were prescribed an antibiotic medicine, take it as told by your health care provider. Do not stop taking the antibiotic even if you start to feel better. ??? Sleep in a semi-upright position at night. Try sleeping in a reclining chair, or place a few pillows under your head. ??? Do notuse tobacco products, including cigarettes, chewing tobacco, and e-cigarettes. If you need help quitting, ask your health care provider. ??? Drink enough water to keep your urine clear or pale yellow. This will help to thin out mucus secretions in your lungs. How is this prevented? There are ways that you can decrease your risk of developing community-acquired pneumonia. Consider getting a pneumococcal vaccine if: ??? You are older than 65 years of age. ??? You are older than 19 years of age and are undergoing cancer treatment, have chronic lung disease, or have other medical conditions that affect your immune system. Ask your health care provider if this applies to you. There are different types and schedules of pneumococcal vaccines. Ask your health care provider which vaccination option is best for you. You may also prevent community-acquired pneumonia if you take these actions: ??? Get an influenza vaccine every year. Ask your health care provider which type of influenza vaccine is best for you. ??? Go to the dentist on a regular basis. ??? Wash your hands often. Use hand heat set operator if soap and water are not available. Contact a health care provider if: ??? You have a fever. ??? You are losing sleep because you cannot control your cough with cough medicine. Get help right away if: ??? You have worsening shortness of breath. ??? You have increased chest pain. ??? Your sickness becomes worse, especially if you are an older adult or have a weakened immune system. ??? You cough up blood. This information is not intended to replace advice given to you by your health care provider. Make sure you discuss any questions you have with your health care provider. Document Released: 03/10/2006 Document Revised: 07/18/2016 Document Reviewed: 07/05/2015 [employer] Interactive Patient Education ? 2017 [employer]. Allergies: No Known Medication Allergies Medication Information: Prescription Display albuterol (albuterol CFC free 90 mcg/inh inhalation aerosol with adapter) 2 Puff, Inhalation, QID, PRN as needed for wheezing, # 1 Each, 0 Refill(s), Pharmacy: [facility] chlorpheniramine-hydrocodone (Tussionex [employer]Kinetic 10 mg-8 mg/5 mL oral suspension, extended release) 5 mL, Oral, Q12H, # 120 mL, 0 Refill(s) levoFLOXacin (Levaquin 750 mg oral tablet) 1 Tab, Oral, Tab, [id number], X 7 Day(s), # 7 Tab, 0 Refill(s), Pharmacy: [facility] Home Meds Display budesonide-formoterol (Symbicort 80 mcg-4.5 mcg/inh inhalation aerosol) Puff, Inhalation, BID, 0 Refill(s) Laboratory or Other Results This Visit (last charted value for your 03/27/2018 visit) Computed Tomography 03/27/18 11:50:25 CT Chest WO: CT Chest WO Medication Comment: Procedures: Laboratory Orders No laboratory orders were placed. Radiology Orders Name Status CT Chest WO Completed Cardiology Orders No cardiology orders were placed. This statement is to verify that BALAJI CRANDALL was seen at [facility] on ,03/27/2018 13:08:40. This is not a work excuse, if [...] along the way. As a healthcare provider, Best recommends that you stop smoking. Assistance with quitting is available by contacting 7-271-EMOQ-NOW. This is a free resource providing counseling, [...] Electronic Communications Privacy Act 18 U.S.C. ???Sections 4721-2695,?? and contain information intended for the specified [...] sure to sign up for the [facility] patient portal, which gives you 14/10 access to your medical information ??? including these discharge instructions ??? using your computer, smartphone, or tablet. Just go to [employer] to get started. Questions? Call . Acknowledgment [...]
--- OUTSIDE RECORDS SUMMARY | 2025-01-05 12:09 | XMS_ITS | Encounter Summary ---
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 Was seen at [facility] on 03/18 for the same, feeling worse . History of Present Illness The patient presents with cough. The onset was 10 days ago. The course/duration of symptoms is worsening. Character productive: yellow. The degree at onset was minimal. The degree at present is minimal. The exacerbating factor is none. The relieving factor is none. Risk factors consist of smoking. Prior episodes: none. Therapy today: none. Associated symptoms: shortness of breath. Additional history: Mr. Crandall is a 47-year-old male no significant medical problems tells me he coughed so hard approximately 10 days ago that thinks he fractured rib was seen at an outside facility told it was muscle strain states symptoms have persisted presented emergency department for evaluation. Review of Systems Constitutional symptoms: Negative except as documented in HPI. Skin symptoms: Negative except as documented in HPI. Eye symptoms: Negative except as documented in HPI. ENMT symptoms: Negative except as documented in HPI. Respiratory symptoms: Shortness of breath, cough, Sputum production: Yellow. Cardiovascular symptoms: Negative except as documented in HPI. Gastrointestinal symptoms: Negative except as documented in HPI. Genitourinary symptoms: Negative except as documented in HPI. Musculoskeletal symptoms: Negative except as documented in HPI. Neurologic symptoms: Negative except as documented in HPI. Psychiatric symptoms: Negative except as documented in HPI. Endocrine symptoms: Negative except as documented in HPI. Hematologic/Lymphatic symptoms: Negative except as documented in HPI. Allergy/immunologic symptoms: Negative except as documented in HPI. Additional review of systems information: All other systems reviewed and otherwise negative. Health Status Allergies: Allergic Reactions (Selected) No Known Medication Allergies. Medications: (Selected) Inpatient Medications Ordered Levaquin: 750 mg, Oral, 1-Time Documented Medications Documented Symbicort 80 mcg-4.5 mcg/inh inhalation aerosol: Puff, Inhalation, BID, 0 Refill(s), per nurse's notes. Immunizations: Up to date. Past Medical/ Family/ Social History Medical history Reviewed as documented in chart. Surgical history: No active procedure history items have been selected or recorded., Reviewed as documented in chart. Family history: No family history items have been selected or recorded., Reviewed as documented in chart. Social history: Social & Psychosocial Habits Tobacco 03/27/2018 Smoking Status 10 or more cigarettes (1/ , Reviewed as documented in chart. Problem list: Active Problems (1) COPD (chronic obstructive pulmonary disease) , per nurse's notes. Physical Examination Vital Signs Vital Signs/Vital Measures 03/27/2018 11:08 EST Temperature Source Tympanic Temperature Mode Fahrenheit Temperature, Fahrenheit 97.7 Deg F Clinical Temperature, C 36.5 Deg C Peripheral Pulse Rate 78 bpm Respiratory Rate 18 Breaths/Min Systolic Blood Pressure 168 mmHg HI Diastolic Blood Pressure 79 mmHg Oxygen Saturation 79 % LOW . Measurements 03/27/2018 11:08 EST Height Source Stated Height Entry Format Leidy Height/Length, COLOMBIAN (ft) 5 ft Height/Length COLOMBIAN 6 Inch CLINICALHEIGHT 167.64 cm [place] Body Weight 62.88 kg Weight Source, ED Critical estimated dosing weight Weight Entry Format Rush Weight Naur[place] lb 195 lb CLINICALWEIGHT 88.64 kg Body Surface Area (BSA) 1.98 m2 Body Mass Index 31.5 kg/m2 HI . Oxygen Saturation 03/27/2018 11:08 EST Oxygen Saturation 79 % LOW . General: Alert, no acute distress, non-toxic appearence - looks comfortable sitting in bed, Not ill-appearing, Developmental milestones Skin: Warm. Head: Normocephalic. Neck: Supple. Eye: Normal conjunctiva. Ears, nose, mouth and throat: No pharyngeal erythema or exudate. Cardiovascular: Regular rate and rhythm, No murmur. Respiratory: Respirations are non-labored, breath sounds are equal, Scant expiratory wheeze. Back: Normal range of motion. Musculoskeletal: Normal ROM. Neurological: Alert and oriented to person, place, time, and situation, No focal neurological deficit observed. Lymphatics: No lymphadenopathy. Psychiatric: Cooperative, appropriate mood & affect. Medical Decision Making Differential Diagnosis:: Bronchitis, upper respiratory infection, pneumonia, Pleurisy. Documents reviewed: Emergency department nurses' notes, emergency department records, prior records. Chest X-Ray: Radiology Results (Last 48 hours) [id number] -- 03/27/2018 11:04 CT Chest WO (03/27/2018 11:50) Result: CT SCAN OF THE CHEST WITHOUT CONTRAST; 03/27/2018 11:25 AM HISTORY: Acute left chest wall pain.COMPARISON: None.PROCEDURE: Axial images were obtained from the lung apex to the midabdomen by computed tomography. This study was performed with techniquesto keep radiation doses as low as reasonably achievable, (ALARA).Individualized dose reduction techniques using automated exposurecontrol or adjustment of mA and/or kV according to the patient size wereemployed.FINDINGS: CHEST: The heart size is normal. There is no pericardial or pleuraleffusion. There is no adenopathy. Limited images of the upper abdomendemonstrate prior cholecystectomy. Interstitial changes are present inthe base of the right middle lobe. There is a vague lingular opacity,likely atelectatic in nature.IMPRESSION: Lingular opacity is likely secondary to atelectasis.Three-month followup chest CT is recommended.Otherwise, no acute process. . Reexamination/ Reevaluation Course: improving. Pain status: decreased. Assessment: exam improved. Notes: given vitals/exam are all stable; cxr showing pneumonia given antibiotics emergency department will continue at home; PERC negative looks well safe to go home; I offered further workup for possible observation admission he states he would prefer to go home and if he worsens will return to the emergency department; I think this is reasonable; I then discussed diagnosis and treatment plan he states understands and agrees with all; he is safe to go home with PCP follow-up in next 1-2 days; he was given explicit instructions on return precautions if worsens, any further concerns, if fever greater than 101.5 after Tylenol and Motrin he must return to the emergency department or nearest emergency department; noted to have elevated blood pressure emergency department will have follow-up with primary care for five-day blood pressure check to further evaluate and treatment. Impression and Plan Diagnosis Cough - Discharge, Medical Pneumonia - Discharge, Emergency medicine, Medical Elevated blood pressure reading - Discharge, Emergency medicine, Medical Plan Condition: Improved, Stable. Disposition: Medically cleared. Prescriptions: Prescription Rehab Nurse Pharmacy: Tussionex [employer] 10 mg-8 mg/5 mL oral suspension, extended release (Prescribe): 5 mL, Oral, Q12H, 120 mL, 0 Refill(s) Levaquin 750 mg oral tablet (Prescribe): 1 Tab, Oral, [id number], for 7 Day(s), 7 Tab, 0 Refill(s) albuterol CFC free 90 mcg/inh inhalation aerosol with adapter (Prescribe): 2 Puff, Inhalation, QID, PRN: as needed for wheezing, 1 Each, 0 Refill(s), ekasper [id number]. Patient was given the following educational materials: Community-Acquired Pneumonia, Adult. Follow up with: [facility] Within 2 to 3 days Please contact the Patient Resource Center at or if you need assistance finding a Primary Care Provider; JACQUIE RAE Within 2 to 3 days. Counseled: Patient, Pre-hypertension/Hypertension: The patient has been informed that they may have pre-hypertension or Hypertension based on a blood pressure reading in the emergency department. I recommend that the patient call the primary care provider listed on their discharge instructions or a physician of their choice this week to arrange follow up for further evaluation of possible pre-hypertension or Hypertension.. documented in this encounter Plan of Treatment Not on file documented as of this encounter Visit Diagnoses Not on filedocumented in this encounter
--- OUTSIDE RECORDS SUMMARY | 2025-01-05 12:09 | XMS_ITS | Encounter Summary ---
Author Organization [employer] ([place], [place], [place], [place]) Address [address] [place] [address] Care Team Providers Care Family Development Extension Specialist Name Role Phone Unavailable Primary Care Provider Unavailabl e Encounter Details Date Type Department Care Team (Late st Contact Info) Description 04/06/2018 Transcribed Document [facility] [place] [facility] [place] [address] ProviderStephan MD [facility] [place] [address] Social History Tobacco Use Types Packs/Day Years Used Date Smoking Tobacco: Never Assessed Sex and Gender Information Value Date Recorded Sex Assigned at Male 09/18/2021 5:57 PM CDT Legal Sex Male 5:57 PM CDT Gender Identity Male 09/18/2021 5:57 PM CDT Sexual Orientation Not on file documented as of this encounter Miscellaneous Notes * Cerner Conversion Note - Historical ProviderMD - 04/06/2018 6:00 AM STATION INSPECTOR Electronically signed by [facility] Conversion Painting Contractor Cerner at 07/10/2022 6:54 PM CDT documented in this encounter Plan of Treatment Not on file documented as of this encounter Visit Diagnoses Not on filedocumented in this encounter
--- OUTSIDE RECORDS SUMMARY | 2025-01-05 12:09 | XMS_ITS | Referral Summary ---
Author Organization [email or web address] ([place], [place], [place], [place]) Address [address] [place] [address] Care Team Providers Care Health Care Marketing Specialist Name Role Phone Unavailable Primary Care [...]
--- OUTSIDE RECORDS SUMMARY | 2025-01-05 12:09 | XMS_ITS | Patient Health Record ---
Author Organization [facility] JOVAN Address [address] [facility] [address] [place] [address] Care Team Providers Care Black Top Machine Operator Name Role Phone Silver Enriquez Primary Care Provider Migration, Provider Unavailable Unavailable Allergies No Known Allergies Reason For Referral No Information Medications Medication SIG (Take, Route, Frequency, Duration) Notes Start Date End Date Status Rosuvastatin Calcium 10 MG 1 tab(s) orally once a day; Duration: 30 days 02/19/2022 Active Levothyroxine Sodium 50 MCG 1 tab(s) orally once a day; Duration: 30 days 02/19/2022 Active Albuterol Sulfate HFA 108 (90 Base) MCG/ACT 2 puff(s) inhaled every 6 hours as needed; Duration: 30 days 10/08/2021 Active AERO CHAMBER DIRECTED ORALLY DIRECTED; Duration: 30 DAY(S) *Please review for potential replacement for e-prescription and drug interaction check* 04/19/2019 Active Flomax 0.4 MG 1 CAP(S) ORALLY ONCE A DAY AT BEDTIME; Duration: 30 DAYS *Please review and pick correct strength-formulatio n from [employer] options. If intended option is not shown, discontinue and re-order from Quick Search* 10/08/2021 Active Ipratropium-Albuterol 0.5-2.5 (3) MG/3ML 3 ml by nebulizer 4 times a day as needed; Duration: 30 day(s) Active Doxycycline Hyclate 100 MG 1 cap(s) orally 2 times a day; Duration: 10 day(s) 07/18/2022 Active predniSONE 20 MG 1 tab(s) orally once a day; Duration: 7 day(s) 07/18/2022 Active Diclofenac Sodium 75 MG 1 tab(s) orally 2 times a day; Duration: 30 days Active Advair HFA 230-21 MCG/ACT 2 puff(s) inhaled 2 times a day; Duration: 30 days Active Temazepam 30 MG 1 cap(s) orally once a day (at bedtime); Duration: 30 days 10/16/2022 Active Social History Tobacco Use: Social History Observation Description Date Details (start date - stop date) Current Smoker NA - NA Smoking: Question Answer Notes Are you a: current smoker How often do you smoke cigarettes? every day How many cigarettes a day do you smoke? 11-20 Additional Findings: Tobacco User Heavy cigarett e smoker (20-39 cigs/day) Problems Problem Type SNOMED Code ICD Code Onset Dates Problem Status W/U Status Risk Notes Problem Osteoarthritis of knee (765172053) Bilateral primary osteoarthritis of knee (M17.0) Active confirmed Problem COPD - Chronic obstructive pulmonary disease (04185263) COPD (chronic obstructive pulmonary disease) (J44.9) Active confirmed Problem Hypothyroidism (31407726) Hypothyroidism (acquired) (E03.9) Active confirmed Problem Hyperlipidemia (66578864) Hyperlipemia, idiopathic familial (E78.5) Active confirmed Problem Acute exacerbation of chronic obstructive airways disease (591395328) COPD exacerbation (J44.1) Active confirmed Problem Chronic insomnia (616207389) Chronic insomnia (F51.04) Active confirmed Problem Adult stuttering (F98.5) Active confirmed Problem Angina at rest (15333613) Angina at rest (I20.8) Active confirmed Problem Lower urinary tract symptoms due to benign prostatic hypertrophy (18847849992385) Benign prostatic hyperplasia with lower urinary tract symptoms (N40.1) Active confirmed Encounters Encounter Location Date Provider Diagnosis [facility] JOVAN [address] [place] [address] 06/26/2024 Provider Migration COPD exacerbation J44.1 ; [...] 06/26/2024 Chronic insomnia (ICD-10 - F51.04) 06/26/2024 Benign prostatic hyperplasia with lower urinary tract symptoms (ICD-10 - N40.1) 06/26/2024 COPD (chronic obstructive pulmonary disease) (ICD-10 - J44.9) 06/26/2024 Bilateral primary osteoarthritis of knee (ICD-10 - M17.0) 06/26/2024 Hypothyroidism (acquired) (ICD-10 - E03.9) 06/26/2024 Hyperlipemia, idiopathic familial (ICD-10 - E78.5) Plan Of Treatment Pending Test Test Name Order Date MRI : Lumbosacral Spine 10/30/2020 Cardiolite GXT 07/23/2022 Lexiscan Stress Test 08/06/2022 CT Scan : Chest, Lung Cancer Screening 0 07/18/2022 LIPID PANEL, STANDARD (7600) 07/18/2022 COMPREHENSIVE METABOLIC PANEL (29066) CBC (INCLUDES DIFF/PLT) (6399) TSH (899) 07/18/2022 Insurance Providers Payer Name Payer Address Payer Phone Subscriber Number Group Number Insured Name Patient Relationship to Insured Coverage Start Date Coverage End Date [employer] [facility] [address] [address] [place] [phone] [id number] Balaji Fuller Self - patient is the insured Medical (General) History Medical History History ICD Code COPD Negative Cologuard 07/2022 Surgical History Surgery Date(Month/Year) gallbladder surgery 2014
--- OUTSIDE RECORDS SUMMARY | 2025-01-05 12:09 | XMS_ITS | Encounter Summary ---
Author Organization [employer] ([place], [place], [place], [place]) Address [address] [place] [address] Care Team Providers Care Web Search Evaluator Name Role Phone Unavailable Primary Care Provider Unavailabl e Encounter Details Date Type Department Care Team (Late st Contact Info) Description 04/06/2018 Transcribed Document [facility] [place] Family Medicine [facility] [place] [address] ProviderStephan MD [address] [place] [address] Social History Tobacco Use Types Packs/Day Years Used Date Smoking Tobacco: Never Assessed Sex and Gender Information Value Date Recorded Sex Assigned at Male 09/18/2021 5:57 PM CDT Legal Sex Male 5:57 PM CDT Gender Identity Male 09/18/2021 5:57 PM CDT Sexual Orientation Not on file documented as of this encounter Miscellaneous Notes * Cerner Conversion Note - Stephan ProviderMD - 04/06/2018 5:50 AM COMPANY CONTROLLER Patient: BALAJI CRANDALL Age: 48 years Sex: Male : 1970 Associated Diagnoses: Chest wall pain Author: JOEY URIBE MD Basic Information Additional information: Chief Complaint from Nursing Triage Note : Chief Complaint 04/06/2018 5:12 EST Chief Complaint c/o worsening chest wall pain. pt recently dx with pnumonia. pt said no better. . History of Present Illness The patient presents with rib-trunk pain. The onset was 2.5 weeks ago. The course/duration of symptoms is constant and worsening. Location: left, anterior, lateral, lower chest. The character of symptoms is pain. The degree of pain is severe. The degree of bleeding is none. The exacerbating factor is coughing. Risk factors consist of not anticoagulated. Associated symptoms: nausea, denies shortness of breath, denies syncope, denies vomiting and denies back pain. patient was seen at another hospital 2.5wks ago and told broken ribs on Right He was seen here on the 4th and diagnosed with pneumonia (lingular) He states he got a little better but now his chest is hurting worse with coughing. His abdominal muscles are sore too. Psychology Department Chair bowel or bladder c/o. No lightheadedness. No fever or chills. Review of Systems Constitutional symptoms: No fever, no chills. Skin symptoms: No rash, Eye symptoms: Negative except as documented in HPI. ENMT symptoms: Negative except as documented in HPI. Respiratory symptoms: Cough, No shortness of breath, Cardiovascular symptoms: Negative except as documented in HPI. Gastrointestinal symptoms: Negative except as documented in HPI. Musculoskeletal symptoms: Muscle pain, No back pain, Neurologic symptoms: Negative except as documented in HPI. Additional review of systems information: All other systems reviewed and otherwise negative. Health Status Allergies: Allergic Reactions (Selected) No Known Medication Allergies. Past Medical/ Family/ Social History Medical history Cardiovascular: no hypertension, patient states he has white coat syndrome BP normal at home. Respiratory: chronic obstructive pulmonary disease. Surgical history: No active procedure history items have been selected or recorded.. Family history: No family history items have been selected or recorded.. Social history: Social & Psychosocial Habits Tobacco 03/27/2018 Smoking Status 10 or more cigarettes (1/ , heavy smoker. Physical Examination Vital Signs Vital Signs/Vital Measures 04/06/2018 5:12 EST Temperature Source Oral Temperature Mode Fahrenheit Temperature, Fahrenheit 97.1 Deg F Clinical Temperature, C 36.2 Deg C Peripheral Pulse Rate 71 bpm Respiratory Rate 18 Breaths/Min Systolic Blood Pressure 187 mmHg HI Diastolic Blood Pressure 99 mmHg HI Oxygen Saturation 100 % Oxygen Therapy Mode Room air . Measurements 04/06/2018 5:12 EST Height Source Stated Height Entry Format Hubbard Height/Length, SERBIAN (ft) 5 ft Height/Length SERBIAN 6 Inch CLINICALHEIGHT 167.64 cm [place] Body Weight 62.88 kg Weight Source, ED Critical estimated dosing weight Weight Entry Format Hubbard Weight Chilean lb 195 lb CLINICALWEIGHT 88.64 kg Body Surface Area (BSA) 1.98 m2 Body Mass Index 31.5 kg/m2 HI . Oxygen Saturation 04/06/2018 5:12 EST Oxygen Saturation 100 % . General: Alert, no acute distress. Skin: Warm, dry, no rash. Head: Normocephalic, atraumatic. Neck: Supple. Eye: Pupils are equal, round and reactive to light, normal conjunctiva. Ears, nose, mouth and throat: Oral mucosa moist. Cardiovascular: Regular rate and rhythm. Respiratory: Lungs are clear to auscultation, respirations are non-labored, breath sounds are equal, Symmetrical chest wall expansion. Chest wall: L lower ribs from ant ax line ant ribs tender No crepitus, no deformity. Back: Normal range of motion. Musculoskeletal: Normal ROM, normal strength. Gastrointestinal: Soft, superficial tenderness epigastric, and RUQ. Neurological: Alert and oriented to person, place, time, and situation, No focal neurological deficit observed, stutter prominent. Psychiatric: Cooperative. Medical Decision Making Differential Diagnosis: Chest wall pain. Chest X-Ray: Interpretation by Emergency Physician, very sl blunting R base. Reexamination/ Reevaluation pt is approaching 3 weeks out from original inj. I am not concerned about intrabdominal pathology at this point. His pneumonia has cleared I will give him antiinflammatories and cough medicine Impression and Plan Diagnosis Chest wall pain - Discharge, Emergency medicine, Medical Plan Condition: Unchanged. Disposition: Discharged Admit/Transfer/Discharge: Discharge (Order): Start: 04/06/2018 5:58 EST, Discharge to: Home. Prescriptions: Prescription Badger Distiller Operator Pharmacy: ibuprofen 800 mg oral tablet (Prescribe): 1 Tab, Oral, Q8H, for 10 Day(s), PRN: Pain (Moderate 4-6), 30 Tab, 0 Refill(s) benzonatate 200 mg oral capsule (Prescribe): 1 Cap, Oral, TID, for 7 Day(s), do not crush or chew KEEP AWAY FROM CHILDREN, PRN: as needed for cough, 21 Cap, 0 Refill(s). Patient was given the following educational materials: Chest Wall Pain. Follow up with: JACQUIE RAE Within 2 to 3 days; Follow up with primary care provider Within 2 to 3 days Use the cough medicine and follow up with you FAMILY by Friday return any problems. Counseled: Patient, Regarding diagnosis, Regarding diagnostic results, Regarding treatment plan, Regarding prescription. documented in this encounter Plan of Treatment Not on file documented as of this encounter Visit Diagnoses Not on filedocumented in this encounter
--- OUTSIDE RECORDS SUMMARY | 2025-01-05 12:09 | XMS_ITS | Encounter Summary ---
Author Organization [facility] ([place], [place], [place], [place]) Address [address] [place] [address] Care Team Providers Care Scrap Stripper Hand Name Role Phone Unavailable Primary Care Provider Unavailabl e Encounter Details Date Type Department Care Team (Late st Contact Info) Description 03/27/[address] [facility] [place] Family Medicine [facility] [place] [address] ProviderStephan MD [address] [place] [address] Social History Tobacco Use Types Packs/Day [...] - Historical ProviderMD - 03/27/2018 1:08 PM CLASSROOM COORDINATOR [address] [place] [address] PERSON INFORMATION Name BALAJI CRANDALL Age 47 Years 1970 Sex Male Language Danish PCP JACQUIE RAE NP-FAM Marital Status Med Service Emergency Medicine Acct# Arrival 03/27/2018 11:04:00 Visit Reason Rib/trunk pain-swelling; RIB PAIN ON LEFT SIDE Acuity 3 - Urgent LOS 000 02:04 Depart Date: 03/27/18 01:08 PM Address: [address] [address] Comment: PROVIDER INFORMATION Provider Role Assigned Unassigned CLARE BROCK PA-RAMO ED Physician 03/27/2018 11:07:03 Katie Bonilla, IT ARCHITECTURE ANALYST Nurse 03/27/2018 11:21:26 DIAGNOSIS Cough; Elevated blood pressure reading; Pneumonia PHYS DOC NOTES VITALS INFORMATION Vital Sign Triage Latest Temp Source Tympanic Tympanic Temp Mode Fahrenheit Fahrenheit Temp Fahrenheit 97.7 Deg F 97.7 Deg F Temp Celsius 02 Sat 79 % 100 % Respiratory Rate 18 Breaths/Min 18 Breaths/Min Peripheral Pulse Rate 78 bpm 90 bpm Apical Heart Rate Blood Pressure 168 mmHg / 79 mmHg 168 mmHg / 79 mmHg Comment: MEDICAL INFORMATION Allergy Info: No Known Medication Allergies Medications: Prescription Display albuterol (albuterol CFC free 90 mcg/inh inhalation aerosol with adapter) 2 Puff, Inhalation, QID, PRN as needed for wheezing, # 1 Each, 0 Refill(s), Pharmacy: [facility] chlorpheniramine-hydrocodone (Tussionex PennKinetic 10 mg-8 mg/5 mL oral suspension, extended release) 5 mL, Oral, Q12H, # 120 mL, 0 Refill(s) levoFLOXacin (Levaquin 750 mg oral tablet) 1 Tab, Oral, Tab, [id number], X 7 Day(s), # 7 Tab, 0 Refill(s), Pharmacy: [facility] Home Meds Display budesonide-formoterol (Symbicort 80 mcg-4.5 mcg/inh inhalation aerosol) Puff, Inhalation, BID, 0 Refill(s) Comment: DISCHARGE INFORMATION Discharge Disposition: Home Discharge Location: PATIENT EDUCATION INFORMATION Instructions: Community-Acquired Pneumonia, Adult Follow up: With: Address: When: JACQUIE RAE Within 2 to 3 days With: Address: When: [facility] Within 2 to 3 days Comments: Please contact the Patient Resource Center at or if you need assistance finding a Primary Care Provider Comment: documented in this encounter Plan of Treatment Not on file documented as of this encounter Visit Diagnoses Not on filedocumented in this encounter
--- OUTSIDE RECORDS SUMMARY | 2025-01-05 12:09 | XMS_ITS | Encounter Summary ---
Author Organization [employer] [employer] ([place], [place], [place], [place]) Address [address] [place] [address] Care Team Providers Care Animal Humane Agent Supervisor Name Role Phone Unavailable Primary Care Provider Unavailabl e Encounter Details Date Type Department Care Team (Late st Contact Info) Description 04/05/2018 Transcribed Document [facility] [place] [address] [place] [address] ProviderStephan MD [facility] [place] [address] Social History Tobacco Use Types Packs/Day Years Used Date Smoking Tobacco: Never Assessed Sex and Gender Information Value Date Recorded Sex Assigned at Male 09/18/2021 5:57 PM CDT Legal Sex Male 5:57 PM CDT Gender Identity Male 09/18/2021 5:57 PM CDT Sexual Orientation Not on file documented as of this encounter Miscellaneous Notes * Cerner Conversion Note - Historical ProviderMD - 04/05/2018 2:14 PM ENERGY ENGINEER ED Discharge Entered On: 04/05/2018 14:52 EST Performed On: 04/05/2018 14:14 EST by TOMAS MARIE Rn Discharge Process Patient Disposition : AMA/Elope/LWBS Personal Belongings With Patient : Yes TOMAS MARIE Rn - 04/05/2018 14:51 EST LWBS/Elopement/AMA Patient Left Prior To Medical Screening : Unseen Asked to Sign LWBS Form : Form signed TOMAS MARIE Rn - 04/05/2018 14:51 EST Electronically signed by Db Johnston Conversion Rubber Gasket Inspector Trimmer Cerner at 07/10/2022 6:31 PM CDT documented in this encounter Plan of Treatment Not on file documented as of this encounter Visit Diagnoses Not on filedocumented in this encounter
--- OUTSIDE RECORDS SUMMARY | 2025-01-05 12:09 | XMS_ITS | Clinical Summary ---
Author Organization [facility] Address [address] [place] [address] Care Team Providers Care Certified Nuclear Medicine Technologist Name Role Phone Jaden Fernandez MD Primary Care Provider [phone] Allergies No known active allergies Medications Azithromycin (ZITHROMAX Z-JESUS PO) Take by mouth. Activ e tiotropium (SPIRIVA) 18 MCG per inhalation capsuleIndicati ons:Panlobular emphysema,Chron ic bronchitis, unspecified chronic bronchitis type Place 1 capsule into inhaler and inhale Daily. 30 capsule 2 8 Active albuterol (PROVENTIL) (2.5 MG/3ML) 0.083% nebulizer solutionIndicat ions:Panlobular emphysema,Chron ic bronchitis, unspecified chronic bronchitis type Take 2.5 mg by nebulization Every 4 (Four) Hours As Needed for Wheezing. 125 vial 2 8 Active mometasone-form oterol (DULERA) 200-5 MCG/ACT inhaler Inhale 2 puffs 2 (Two) Times a Day. 13 g 3 8 Active albuterol sulfate HFA 108 (90 Base) MCG/ACT inhaler Inhale 2 puffs Every 4 (Four) Hours As Needed for Wheezing. 18 g 2 9 Active Fluticasone Furoate-Vilante rol (BREO ELLIPTA) 200-25 MCG/INH inhalerIndicati ons:Panlobular emphysema Inhale 1 puff Daily. 1 inhaler 3 9 Active budesonide-form oterol (SYMBICORT) 160-4.5 MCG/ACT inhaler Inhale 2 puffs 2 (Two) Times a Day. 1 inhaler 06/19/201 9 Active Active Problems Problem Noted Date Diagnosed Date Obesity (BMI 30.0-34.9) 01/11/2016 Overview (01/11/2016): BMI 32.28 Current every day smoker 01/11/2016 Overview (01/11/2016): He smokes one and a half to 2 packs of cigarettes a day but has smoked up to 3 packs per day in the past. Hemorrhoids 01/11/2016 Emphysema/COPD 01/11/2016 Overview (12/22/2024): Emphysema/COPD (492.8) (J43.9) - A. Long-standing tobacco abuse. B. Changes of emphysema noted on chest x-ray 08/09/2013. Pulmonary function tests showed moderate airways obstruction he did not desaturate 6 minute walk test UPDATING PER 2024 REGULATORY 2024 LOAD Social History Tobacco Use Types Packs/Day Years Used Date Smoking Tobacco: Every Day Comments:Smokes 1 1/2 to 2 P PD but has smoked up to 3 PPD in the past Alcohol Use Standard Drinks/Week Comments No 0 (1 standard drink = 0.6 oz pur e alcohol) Abuse Screen Answer Date Recorded Unsafe at Home or Work/School Not on file Feels Threatened by Someone? Not on file 11/2022 Does Anyone Keep You from Co ntacting Others or Doint Things Outside the Home? Not on file 12/30/2022 Physical Sign of Abuse Present Not on file 1 Housing Stability Answer Date Recorded Current Living Arrangements Not on file 11/2022 Potentially Unsafe Housing Conditions Not on micheal e 12/30/2022 Family and Community Support Answer Ramón e Recorded Help with Day-to-Day Activities Not on file 12/30/2022 Lonely or Isolated Not on file 12/30/2022 Employment Answer Date Recorded Do you want help finding or keeping work or a maegan b? Not on file 12/30/2022 Disabilities Answer Date Recorded Concentrating, Remembering, or Making Decisions Difficulty Not on file 12/30/2022 Doing Errands Independently Difficulty Not on fi le 12/30/2022 Education Answer Date Recorded Help with school or training? Not on file Preferred Language Not on file 12/30/2022 Sex and Gender Information Value Date Recorded Sex Assigned at Not on file Legal Sex Male 1:11 PM EDT Gender Identity Not on file Sexual Orientation Not on file Last Filed Vital Signs Vital Sign Reading Time Taken Comments Blood Pressure 122/72 07/04/2016 9:11 AM EDT Pulse 70 07/04/2016 9:11 AM EDT Temperature 36.4 C (97.5 F) 07/04/2016 9:11 AM EDT Respiratory Rate 16 07/04/2016 9:11 AM EDT Oxygen Saturation 98% 07/04/2016 9:11 AM EDT Inhaled Oxygen Concentration - - Weight 85.3 kg (188 lb) 07/04/2016 9:11 AM EDT Height 165.1 cm (5' 5 ) 07/04/2016 9:11 AM EDT Body Mass Index 31.28 07/04/2016 9:11 AM EDT Plan of Treatment Health Maintenance Due Date Last Done Comments TDAP/TD VACCINES (1 - Tdap) 1987 COLOGUARD 2013 COLON CANCER SCREENING 5 YEAR SIGMOIDOSCOPY 2013 COLONOSCOPY 2013 [address] CANCER SCREENING 2013 [address] COLONOGRAPHY 2013 FECAL OCCULT BLOOD TEST 2013 FIT Testing (1 year) 2013 ANNUAL PHYSICAL 07/04/2016 HEPATITIS C SCREENING 07/04/2016 Pneumococcal Vaccine 50+ (1 of 1 - PCV) 2018 ZOSTER VACCINE (1 of 2) 2018 INFLUENZA VACCINE 10/22/2024 Insurance [facility] PPO Care Teams Certified Nuclear Medicine Technologist Relationship Specialty Start Date End Date Jaden Fernandez MD [address] [place] [address] PCP - General Pulmonary Disease 07/04/16
--- OUTSIDE RECORDS SUMMARY | 2025-01-05 12:09 | XMS_ITS | Encounter Summary ---
Author Organization [employer] ([place], [place], [place], [place]) Address [address] [place] [address] Care Team Providers Care Business Performance Manager Name Role Phone Unavailable Primary Care Provider Unavailabl e Encounter Details Date Type Department Care Team (Late st Contact Info) Description 03/27/2018 Transcribed Document [facility] [place] [facility] [place] [address] ProviderStephan MD [address] [place] [address] Social History Tobacco Use Types Packs/Day [...] - Stephan ProviderMD - 03/27/2018 11:04 AM LITERACY EDUCATION PROFESSOR ED Triage Entered On: 03/27/2018 11:13 EST Performed On: 03/27/2018 11:08 EST by TOMAS MARIE Rn ED Triage Across the Room Triage Date/Time : 03/27/2018 11:08 EST Chief Complaint : Co L rib cage pain, states I cracked my ribs coughing . Was seen at [facility] on 03/18 for the same, feeling worse TOMAS MARIE Rn - 03/27/2018 11:08 EST DCP GENERIC CODE Tracking Acuity : 3 - Urgent Tracking Group : [facility] ED [facility] TOMAS MARIE Rn - 03/27/2018 11:08 EST Mode of Arrival : Ambulatory Transported to ED by : Private vehicle To Room Via : Ambulate Accompanied By : Unaccompanied ED Vital Signs : Document Height & Weight : Document ED Allergies : Document ED Reason for Visit : Document TOMAS MARIE Rn - 03/27/2018 11:08 EST Infectious Disease History Infectious Disease History : Chicken pox/Shingles Fever/Chills Last 48 Hours : No Travel To Regions with Travel Advisories : No Travel Outside [place].S. Within Last 30 Days : No Contact With Traveler to Advisory Region : No Tuberculosis Symptoms : None TOMAS MARIE Rn - 03/27/2018 11:08 EST Vital Signs ED Temperature Source : Tympanic Temperature Mode : Fahrenheit Temperature, Fahrenheit : 97.7 Deg F Clinical Temperature, C : 36.5 Deg C Peripheral Pulse Rate : 78 bpm Respiratory Rate : 18 Breaths/Min TOMAS MARIE Rn - 03/27/2018 11:08 EST Allergy (As Of: 03/27/2018 11:13:51 EST) Allergies (Active) No Known Medication Allergies Estimated Onset Date: Unspecified ; Created By: TOMAS MARIE Rn; Reaction Status: Active ; Category: Drug ; Substance: No Known Medication Allergies ; Type: Allergy ; Updated By: TOMAS MARIE Rn; Reviewed Date: 03/27/2018 11:11 EST Diagnosis Control ED (As Of: 03/27/2018 11:13:51 EST) Problems(Active) COPD (chronic obstructive pulmonary disease) (SNOMED CT :81292102 ) Name of Problem: COPD (chronic obstructive pulmonary disease) ; Recorder: TOMAS MARIE Rn; Confirmation: Confirmed ; Classification: Medical ; Code: [id number] ; Contributor System: Fitwall ; Last Updated: 03/27/2018 11:12 EST ; Life Cycle Date: 03/27/2018 ; Life Cycle Status: Active ; Vocabulary: SNOMED CT Diagnoses(Active) Rib/trunk pain-swelling Date: 03/27/2018 ; Diagnosis Type: Reason For Visit ; Confirmation: Complaint of ; Clinical Dx: Rib/trunk pain-swelling ; Classification: Medical ; Clinical Service: Emergency medicine ; Code: PNED ; Probability: 0 ; Diagnosis Code: [id number] ED Height and Weight Height Source : Stated Height Entry Format : [place] Height, Feet : 5 ft(Converted to: 152 cm, 60 Inch) Height, Inches : 6 Inch(Converted to: 0 ft 6 Inch, 15.24 cm) Clinical Height : 167.64 cm Weight Source, ED : Critical estimated dosing weight Weight Entry Format : [place] Weight, Pounds : 195 lb Clinical Dosing Weight : 88.64 kg Body Surface Area (BSA) : 1.98 m2 Body Mass Index : 31.5 kg/m2 (HI) [place] Body Weight (IBW) : 62.88 kg TOMAS MARIE Rn - 03/27/2018 11:08 EST Electronically signed by Db Johnston Conversion Disability Insurance Claim Examiner Cerner at 07/10/2022 6:54 PM CDT documented in this encounter Plan of Treatment Not on file documented as of this encounter Visit Diagnoses Not on filedocumented in this encounter
--- OUTSIDE RECORDS SUMMARY | 2025-01-05 12:09 | XMS_ITS | Encounter Summary ---
Author Organization [employer] ([place], [place], [place], [place]) Address [address] [place] [address] Care Team Providers Care Trailer Sections Assembler Name Role Phone Unavailable Primary Care Provider Unavailabl e Encounter Details Date Type Department Care Team (Late st Contact Info) Description 04/06/2018 Transcribed Document [facility] [place] [facility] [place] [address] ProviderStephan MD [facility] [place] [address] Social History Tobacco Use Types [...] Conversion Note - Stephan ProviderMD - 04/06/2018 4:58 AM PUBLIC HEALTH POLICY ANALYST ED Assessment Entered On: 04/06/2018 5:33 EST Performed On: 04/06/2018 5:32 EST by VANIA SANDOVAL RN ED Quick Look Assessment Level of Consciousness : Awake Affect/Behavior : Cooperative Orientation : Oriented x 4 Skin Color : Other: pwd Skin Temperature : Warm Skin Description : Other: pwd VANIA SANDOVAL RN - 04/06/2018 5:32 EST ED General-Functional Assess Information Obtained From : Patient Preferred Communication Mode : Verbal Communication Barrier : None Primary Language : German Any Spiritual/Cultural Needs or Requests : No Currently in Unsafe Situation : No VANIA SANDOVAL RN - 04/06/2018 5:32 EST Social Habits Smoking Status : 10 or more cigarettes (1/2 pack or more)/day in last 30 days Smokeless Tobacco Status : Never Desires Tobacco Cessation Medication : No Reason for No Tobacco Cessation Medication : Refuses FDA approved medications Desires Tobacco Cessation Calc : 1 VANIA SANDOVAL RN - 04/06/2018 5:32 EST Social History (As Of: 04/06/2018 05:33:31 EST) Tobacco: 10 or more cigarettes (1/2 pack or more)/day in last 30 days Smoking Status. (Last Updated: 03/27/2018 11:16:08 EST by NAI [place]) Cardiovascular ASMT, ED Cardiovascular Assessment WDL : WDL with exceptions Cardiovascular Symptoms : Chest discomfort at rest, Chest discomfort with activity Heart Rhythm : Regular VANIA SANDOVAL RN - 04/06/2018 5:32 EST Electronically signed by [facility], [facility] Conversion Utility Specialist Cerner at 07/10/2022 6:40 PM CDT documented in this encounter Plan of Treatment Not on file documented as of this encounter Visit Diagnoses Not on filedocumented in this encounter
--- OUTSIDE RECORDS SUMMARY | 2025-01-05 12:09 | XMS_ITS | Encounter Summary ---
Author Organization [employer] ([place], [place], [place], [place]) Address [address] [place] [address] Care Team Providers Care Head Cager Name Role Phone Unavailable Primary Care Provider Unavailabl e Encounter Details Date Type Department Care Team (Late st Contact Info) Description 03/27/2018 Transcribed Document [facility] [place] [facility] [place] [address] ProviderStephan MD [facility] [place] [address] Social History Tobacco Use Types [...] Conversion Note - Historical ProviderMD - 03/27/2018 12:49 PM PLEXIGLAS FORMER Electronically signed by [facility], [facility] Conversion Ion Implant Machine Operator Cerner at 07/10/2022 6:37 PM CDT documented in this encounter Plan of Treatment Not on file documented as of this encounter Visit Diagnoses Not on filedocumented in this encounter
--- OUTSIDE RECORDS SUMMARY | 2025-01-05 12:09 | XMS_ITS | Encounter Summary ---
Author Organization [employer] ([place], [place], [place], [place]) Address [address] [place] [address] Care Team Providers Care Field Associate Name Role Phone Unavailable Primary Care Provider Unavailabl e Encounter Details Date Type Department Care Team (Late st Contact Info) Description 04/06/2018 Transcribed Document [facility] [place] [facility] [place] [address] ProviderStephan MD [facility] [place] [address] Social History Tobacco Use Types [...] Conversion Note - Stephan ProviderMD - 04/06/2018 6:00 AM CHUTE BOSS ED Discharge Entered On: 04/06/2018 6:01 EST Performed On: 04/06/2018 6:00 EST by VANIA SANDOVAL oil heat technician Process Patient Disposition : Discharge Personal Belongings With Patient : Yes Patient Education Completed : Yes Teaching Evaluation : Verbalizes understanding Education Comment : [facility], and 2 scripts IV Discontinued : Not applicable Nursing Documentation Completed : Yes VANIA SANDOVAL RN - 04/06/2018 6:00 EST ED Discharge Discharge To : Home with ambulatory/outpatient follow-up Name of Receiving Facility/Provider : [facility] Mode Of Departure : Ambulatory Accompanied By : Unaccompanied Discharge Instructions Reviewed With, Opportunity For Questions Given : Patient Prescriptions Given to Patient : Yes Number of Prescriptions Given : 2 VANIA SANDOVAL RN - 04/06/2018 6:00 EST Electronically signed by V[facility] Conversion Electrolysis Operator Cerner at 07/10/2022 6:32 PM CDT documented in this encounter Plan of Treatment Not on file documented as of this encounter Visit Diagnoses Not on filedocumented in this encounter
--- OUTSIDE RECORDS SUMMARY | 2025-01-05 12:09 | XMS_ITS | Encounter Summary ---
Author Organization [employer] ([place], [place], [place], [place]) Address [address] [place] [address] Care Team Providers Care Warehouse Receiving Clerk Name Role Phone Unavailable Primary Care Provider Unavailabl e Encounter Details Date Type Department Care Team (Late st Contact Info) Description 04/05/2018 Transcribed Document [facility] [place] [facility] [place] [address] ProviderStephan MD [facility] [place] [address] Social History Tobacco Use Types [...] Conversion Note - Historical ProviderMD - 04/05/2018 2:52 PM HOME VISITOR HOME BASE HEAD START [address] [place] [address] PERSON INFORMATION Name BALAJI CRANDALL Age 48 Years 1970 Sex Male Language Kittitian PCP BEATRIS, JESSICA PRIM Marital Status Med Service Emergency Medicine Acct# Arrival 04/05/2018 13:55:00 Visit Reason DX LAST WEEK FOR PNEUMONIA, NO BETTER Acuity LOS 000 00:57 Depart Date: 04/05/18 02:14 PM Address: [address] [address] Comment: PROVIDER INFORMATION DIAGNOSIS PHYS DOC NOTES VITALS INFORMATION Vital Sign Triage Latest Temp Source Temp Mode Temp Fahrenheit Temp Celsius 02 Sat Respiratory Rate Peripheral Pulse Rate Apical Heart Rate Blood Pressure / / Comment: MEDICAL INFORMATION Allergy Info: No Known Medication Allergies Medications: Comment: DISCHARGE INFORMATION Discharge Disposition: Left Without Being Seen Discharge Location: PATIENT EDUCATION INFORMATION Instructions: Follow up: Comment: Electronically signed by Db Johnston Conversion Food And Beverage Operations Manager Cerner at 07/10/2022 6:41 PM CDT documented in this encounter Plan of Treatment Not on file documented as of this encounter Visit Diagnoses Not on filedocumented in this encounter
--- OUTSIDE RECORDS SUMMARY | 2025-01-05 12:09 | XMS_ITS | Encounter Summary ---
Author Organization [employer] ([place], [place], [place], [place]) Address [address] [place] [address] Care Team Providers Care Regional Airline Pilot Name Role Phone Unavailable Primary Care Provider Unavailabl e Encounter Details Date Type Department Care Team (Late st Contact Info) Description 04/06/2018 Transcribed Document [facility] [place] [facility] [place] [address] ProviderStephan MD [address] [place] [address] Social History Tobacco Use Types Packs/Day [...] - Stephan ProviderMD - 04/06/2018 4:58 AM GM ED Triage Entered On: 04/06/2018 5:15 EST Performed On: 04/06/2018 5:12 EST by Nora Tejeda RN ED Triage Across the Room Triage Date/Time : 04/06/2018 5:12 EST Chief Complaint : c/o worsening chest wall pain. pt recently dx with pnumonia. pt said no better. Nora Tejeda RN - 04/06/2018 5:12 EST DCP GENERIC CODE Tracking Acuity : 3 - Urgent Tracking Group : [facility] ED East Nora Tejeda RN - 04/06/2018 5:12 EST Mode of Arrival : Ambulatory Transported to ED by : Private vehicle To Room Via : Ambulate Accompanied By : Unaccompanied ED Vital Signs : Document Height & Weight : Document ED Allergies : Document ED Reason for Visit : Document ED Triage Treatments : Document Status : N/A Tetanus Immunization : Unknown Tried to Harm Yourself in the Past? : No Thoughts of Harming/Killing Yourself : No Recent Thoughts of Harming/Killing Others : No Nora Tejeda RN - 04/06/2018 5:12 EST Infectious Disease History Infectious Disease History : Chicken pox/Shingles Fever/Chills Last 48 Hours : No Travel To Regions with Travel Advisories : No Travel Outside [place].S[place] Within Last 30 Days : No Contact With Traveler to Advisory Region : No Tuberculosis Symptoms : None Nora Tejeda RN - 04/06/2018 5:12 EST Vital Signs ED Temperature Source : Oral Temperature Mode : Fahrenheit Temperature, Fahrenheit : 97.1 Deg F ED Pain : Yes Clinical Temperature, C : 36.2 Deg C Oxygen Therapy Mode : Room air Peripheral Pulse Rate : 71 bpm Respiratory Rate : 18 Breaths/Min Systolic Blood Pressure : 187 mmHg (HI) Diastolic Blood Pressure : 99 mmHg (HI) Oxygen Saturation : 100 % Nora Tejeda RN - 04/06/2018 5:12 EST Allergy (As Of: 04/06/2018 05:15:08 EST) Allergies (Active) No Known Medication Allergies Estimated Onset Date: Unspecified ; Created By: TOMAS MARIE Rn; Reaction Status: Active ; Category: Drug ; Substance: No Known Medication Allergies ; Type: Allergy ; Updated By: TOMAS MARIE Rn; Reviewed Date: 04/06/2018 5:13 EST Diagnosis Control ED (As Of: 04/06/2018 05:15:08 EST) Problems(Active) COPD (chronic obstructive pulmonary disease) (SNOMED CT :84539672 ) Name of Problem: COPD (chronic obstructive pulmonary disease) ; Recorder: TOMAS MARIE Rn; Confirmation: Confirmed ; Classification: Medical ; Code: [id number] ; Contributor System: [employer]ia ; Last Updated: 03/27/2018 11:12 EST ; Life Cycle Date: 03/27/2018 ; Life Cycle Status: Active ; Vocabulary: SNOMED CT Diagnoses(Active) Chest pain - Pleuritic Date: 04/06/2018 ; Diagnosis Type: Reason For Visit ; Confirmation: Complaint of ; Clinical Dx: Chest pain - Pleuritic ; Classification: Medical ; Clinical Service: Non-Specified ; Code: PNED ; Probability: 0 ; Diagnosis Code: [id number] ED Height and Weight Height Source : Stated Height Entry Format : [place] Height, Feet : 5 ft(Converted to: 152 cm, 60 Inch) Height, Inches : 6 Inch(Converted to: 0 ft 6 Inch, 15.24 cm) Clinical Height : 167.64 cm Weight Source, ED : Critical estimated dosing weight Weight Entry Format : [place] Weight, Pounds : 195 lb Clinical Dosing Weight : 88.64 kg Body Surface Area (BSA) : 1.98 m2 Body Mass Index : 31.5 kg/m2 (HI) [place] Body Weight (IBW) : 62.88 kg Nora Tejeda RN - 04/06/2018 5:12 EST Pain Assessment Pain Assessment : Initial assessment Pain Scale Used : 0-10 Scale Location : Chest Nora Tejeda RN - 04/06/2018 5:12 EST Pain Scale Intensity : 6 Nora Tejeda RN - 04/06/2018 5:12 EST Image 4 - Images currently included in the form version of this document have not been included in the text rendition version of the form. Triage Initial Exam and Interventions, ED Level of Consciousness : Alert, Awake Affect/Behavior : Appropriate, Calm, Cooperative Orientation : Oriented x 4 Skin Temperature : Warm Skin Description : Dry Nora Tejeda RN - 04/06/2018 5:12 EST Electronically signed by Vickie [facility] Conversion Care Companion Cerner at 07/10/2022 6:37 PM CDT documented in this encounter Plan of Treatment Not on file documented as of this encounter Visit Diagnoses Not on filedocumented in this encounter
--- OUTSIDE RECORDS SUMMARY | 2025-01-05 12:09 | XMS_ITS | Encounter Summary ---
Author Organization [employer] ([place], [place], [place], [place]) Address [address] [place] [address] Care Team Providers Care Retail Key Holder Name Role Phone Unavailable Primary Care Provider Unavailabl e Encounter Details Date Type Department Care Team (Late st Contact Info) Description 04/06/2018 Transcribed Document [facility] [place] Family Medicine [facility] [place] [address] ProviderStephan MD [address] [place] [address] Social History Tobacco Use Types Packs/Day [...] - Stephan ProviderMD - 04/06/2018 6:06 AM FOOD SERVICE MANAGER [address] [place] [address] Patient Information Name: BALAJI CRANDALL Age: 48 Years Date of : 1970 Arrival Time: 04/06/2018 04:58:00 Diagnosis Chest wall pain Primary Care Physician: JACQUIE RAE NP-HYUN Provider Information Primary Provider: JOEY URIBE MD Secondary Provider: RAZBALAJI has been given the following list of patient education materials, prescriptions and follow-up instructions: Follow-up Instructions: With: Address: When: Follow up with primary care provider Within 2 to 3 days Comments: Use the cough medicine and follow up with you FAMILY Dr by Friday return any problems With: Address: When: JACQUIE RAE Within 2 to 3 days Patient Education Materials: Chest Wall Pain Chest wall pain is pain in or around the bones and muscles of your chest. Sometimes, an injury causes this pain. Sometimes, the cause may not be known. This pain may take several weeks or longer to get better. Follow these instructions at home: Pay attention to any changes in your symptoms. Take these actions to help with your pain: ??? Rest as told by your health care provider. ??? Avoid activities that cause pain. These include any activities that use your chest muscles or your abdominal and side muscles to lift heavy items. ??? If directed, apply ice to the painful area: ? Put ice in a plastic bag. ? Place a towel between your skin and the bag. ? Leave the ice on for 20 minutes, 2?3 times per day. ??? Take qvvj-xlw-[id number] and prescription medicines only as told by your health care provider. ??? Do notuse tobacco products, including cigarettes, chewing tobacco, and e-cigarettes. If you need help quitting, ask your health care provider. ??? Keep all follow-up visits as told by your health care provider. This is important. Contact a health care provider if: ??? You have a fever. ??? Your chest pain becomes worse. ??? You have new symptoms. Get help right away if: ??? You have nausea or vomiting. ??? You feel sweaty or light-headed. ??? You have a cough with phlegm (sputum) or you cough up blood. ??? You develop shortness of breath. This information is not intended to replace advice given to you by your health care provider. Make sure you discuss any questions you have with your health care provider. Document Released: 03/10/2006 Document Revised: 07/18/2016 Document Reviewed: 06/05/2015 [employer] Interactive Patient Education ? 2017 [employer] Allergies: No Known Medication Allergies Medication Information: Prescription Display benzonatate (benzonatate 200 mg oral capsule) 1 Cap, Oral, Cap, TID, PRN as needed for cough, do not crush or chew KEEP AWAY FROM CHILDREN, X 7 Day(s), # 21 Cap, 0 Refill(s) ibuprofen (ibuprofen 800 mg oral tablet) 1 Tab, Oral, Tab, Q8H, PRN Pain (Moderate 4-6), X 10 Day(s), # 30 Tab, 0 Refill(s) Laboratory or Other Results This Visit (last charted value for your 04/06/2018 visit) No Laboratory or Other Results This Visit Medication Comment: Procedures: Laboratory Orders No laboratory orders were placed. Radiology Orders Name Status CR Chest 1 Vw Portable Ordered Cardiology Orders No cardiology orders were placed. This statement is to verify that BALAJI CRANDALL was seen at [facility] Emergency Department on ,04/06/2018 06:06:45. This is not a work excuse, if [...] Assistance with quitting is available by contacting 8-887-EUGB-NOW. This is a free resource providing counseling, [...] Electronic Communications Privacy Act 18 U.S.C. ???Sections 6140-4826,?? and contain information intended for the specified [...] sure to sign up for the My [facility] patient portal, which gives you 14/10 access to your medical information ??? including these discharge instructions ??? using your computer, smartphone, or tablet. Just go to [employer] to get started. Questions? Call . Acknowledgment [...]
== END 2025-01-04 23:59 ==
LOC: LAB.DROPOF 01-05 12:06
PROVIDERS: PCP Family Medicine; Visit Provider Family Medicine
DX: E03.9 Hypothyroidism, unspecified (principal); I10 Essential (primary) hypertension; E78.5 Hyperlipidemia, unspecified; N40.0 Benign prostatic hyperplasia without lower urinary tract symptoms
CPT/HCPCS: 80053; 80061; 84443; 85025; G0103

== ENCOUNTER 2025-01-17 13:55 | Outpatient (CLI) | payer OTHER, SELFPAY ==
--- OUTSIDE RECORDS SUMMARY | 2024-06-26 17:30 | XMS_ITS ---
Author Organization [facility] Address [address] [facility] [address] [place] [address] Care Team Providers Care Deli Worker Name Role Phone Silver Enriquez Primary Care Provider Migration, Provider Unavailable Unavailable REASON FOR VISIT [facility] Encounter Medications Medication SIG (Take, [...] review and pick correct strength-formulatio n from [facility] options. If intended option is not [...] Active Encounters Encounter Location Date Provider Diagnosis [facility] JOVAN [address] [facility] [address] [place] [address] 06/26/2024 Provider Migration COPD exacerbation J44.1 ; [...] *Please review and pick correct strength-formulation from [employer] options. If intended option is not shown, [...] Notes * Sylwia CRANDALLeDOB:1970 (54 yo M)Acc No.[id number]:06/26/2024 Patient: Balaji NELSON Provider: Pato Lea :1970 A ge:54 Y S ex:Male Date:06/26/2024 Address:[address] [place] [address] [id number] Pcp:Silver Enriquez Subjective: * Chief Complaints: * 1 [...] Electronic signature of Prov ider Migration on 01/17/2025 at 02:50 PM EDT Sign off status: Pending * Provider: Pato gaspar Migration Date: 0 06/26/2024 Generated for Marcelina plasencia/Dl/Tomiitting on: 1 02:50 PM EDT
--- OUTSIDE RECORDS SUMMARY | 2025-01-17 14:50 | XMS_ITS | Encounter Summary ---
Author Organization [employer] ([place], [place], [place], [place]) Address [address] [place] [address] Care Team Providers Care Shop Router Name Role Phone Unavailable Primary Care Provider Unavailabl e Encounter Details Date Type Department Care Team (Late st Contact Info) Description 03/27/2018 Transcribed Document [facility] [place] [facility] [place] [address] ProviderStephan MD [facility] [place] [address] Social History Tobacco Use Types [...] - Historical ProviderMD - 03/27/2018 12:49 PM FACILITY PRACTICE SPECIALIST Electronically signed by [facility], [facility] Conversion Ear Mold Laboratory Technician Cerner at 07/10/2022 6:37 PM CDT documented in this encounter Plan of Treatment Not on file documented as of this encounter Visit Diagnoses Not on filedocumented in this encounter
--- OUTSIDE RECORDS SUMMARY | 2025-01-17 14:50 | XMS_ITS | Encounter Summary ---
Author Organization [employer] ([place], [place], [place], [place]) Address [address] [place] [address] Care Team Providers Care Banking Specialist Name Role Phone Unavailable Primary Care Provider Unavailabl e Encounter Details Date Type Department Care Team (Late st Contact Info) Description 04/06/2018 Transcribed Document [facility] [place] [facility] [place] [address] ProviderStephan MD [address] [place] [address] Social History Tobacco Use Types Packs/Day [...] - Stephan ProviderMD - 04/06/2018 5:50 AM MANAGER ENGAGEMENT Patient: BALAJI CRANDALL Age: 48 years Sex: [...] coughing. His abdominal muscles are sore too. Food And Beverage Assistant bowel or bladder c/o. No lightheadedness. No [...] EST Height Source Stated Height Entry Format [place] Height/Length, ISRAELI (ft) 5 ft Height/Length ISRAELI 6 Inch CLINICALHEIGHT 167.64 cm [place] Body Weight 62.88 kg Weight Source, ED Critical estimated dosing weight Weight Entry Format [place] Weight Panamanian lb 195 lb CLINICALWEIGHT 88.64 kg Body [...] 5:58 EST, Discharge to: Home. Prescriptions: Prescription [facility]: ibuprofen 800 mg oral tablet (Prescribe): [...]
--- OUTSIDE RECORDS SUMMARY | 2025-01-17 14:50 | XMS_ITS | Encounter Summary ---
Author Organization [employer] ([place], [place], [place], [place]) Address [address] [place] [address] Care Team Providers Care Manager Care Name Role Phone Unavailable Primary Care Provider Unavailabl e Encounter Details Date Type Department Care Team (Late st Contact Info) Description 03/27/2018 Transcribed Document [facility] [place] [facility] [place] [address] ProviderStephan MD [facility] [address] Social History Tobacco Use Types [...] - Historical ProviderMD - 03/27/2018 1:08 PM WILDLIFE BIOLOGY TECHNICIAN ED Discharge Entered On: 03/27/2018 13:08 EST [...]
--- OUTSIDE RECORDS SUMMARY | 2025-01-17 14:50 | XMS_ITS | Encounter Summary ---
Author Organization [employer] ([place], [place], [place], [place]) Address [address] [place] [address] Care Team Providers Care Developer Designer Name Role Phone Unavailable Primary Care Provider Unavailabl e Encounter Details Date Type Department Care Team (Late st Contact Info) Description 04/06/2018 Transcribed Document [facility] Family Medicine [facility] [place] [address] ProviderStephan MD [address] [place] [address] Social History Tobacco Use Types Packs/Day [...] - Stephan ProviderMD - 04/06/2018 6:06 AM CLOTH BOLT BANDER [address] [place] [address] Patient Information Name: BALAJI CRANDALL [...] minutes, 2?3 times per day. ??? Take ksrg-wfu-irhstny and prescription medicines only as told by [...] 03/10/2006 Document Revised: 07/18/2016 Document Reviewed: 06/05/2015 Chroma Interactive Patient Education ? 2017 [employer] Inc. Allergies: No Known Medication Allergies Medication [...] CRANDALL was seen at [facility] Emergency Department on ,04/06/2018 06:06:45. This is [...] Assistance with quitting is available by contacting 3-690-LVFO-NOW. This is a free resource providing counseling, [...] Electronic Communications Privacy Act 18 U.S.C. ???Sections 8426-3915,?? and contain information intended for the specified [...] sure to sign up for the My [facility] patient portal, which gives you 14/10 access to your medical information ??? including these discharge instructions ??? using your computer, smartphone, or tablet. Just go to [email or web address] to get started. Questions? Call . Acknowledgment [...]
--- OUTSIDE RECORDS SUMMARY | 2025-01-17 14:50 | XMS_ITS | Encounter Summary ---
Author Organization [employer] ([place], [place], [place], [place]) Address [address] [place] [address] Care Team Providers Care Tire Vulcanizer Name Role Phone Unavailable Primary Care Provider Unavailabl e Encounter Details Date Type Department Care Team (Late st Contact Info) Description 03/27/2018 Transcribed Document [facility] Family Medicine [facility] [place] [address] ProviderStephan MD [address] [place] [address] Social History Tobacco Use Types Packs/Day [...] - Historical ProviderMD - 03/27/2018 1:08 PM HAND THERAPIST [address] [place] [address] PERSON INFORMATION Name BALAJI CRANDALL Age 47 Years 1970 Sex Male Language Macedonian PCP JACQUIE RAE NP-FAM Marital Status Med Service Emergency Medicine Acct# Arrival 03/27/2018 11:04:00 Visit Reason Rib/trunk pain-swelling; RIB PAIN ON LEFT SIDE Acuity 3 - Urgent LOS 000 02:04 Depart Date: 03/27/18 01:08 PM Address: [address] [address] Comment: PROVIDER INFORMATION Provider Role Assigned Unassigned CLARE BROCK PA-RAMO ED Physician 03/27/2018 11:07:03 Katie Bonilla, POLICE COMMISSIONER Nurse 03/27/2018 11:21:26 DIAGNOSIS Cough; Elevated blood [...] wheezing, # 1 Each, 0 Refill(s), Pharmacy: [facility] chlorpheniramine-hydrocodone (Tussionex PennKinetic 10 mg-8 mg/5 mL oral suspension, extended release) 5 mL, Oral, Q12H, # 120 mL, 0 Refill(s) levoFLOXacin (Levaquin 750 mg oral tablet) 1 Tab, Oral, Tab, [id number], X 7 Day(s), # 7 Tab, 0 Refill(s), Pharmacy: [facility] Home Meds Display budesonide-formoterol (Symbicort [...]
--- OUTSIDE RECORDS SUMMARY | 2025-01-17 14:50 | XMS_ITS | Patient Health Record ---
Author Organization [facility] JOVAN Address [address] [facility] [address] [place] [address] Care Team Providers Care Quality Liaison Name Role Phone Mina Silver Primary Care Provider Migration, Provider Unavailable Unavailable [...] review and pick correct strength-formulatio n from [employer] One options. If intended option is not shown, [...] Status Risk Notes Problem Osteoarthritis of knee (655719112) Bilateral primary osteoarthritis of knee (M17.0) Active confirmed Problem COPD - Chronic obstructive pulmonary disease (91724029) COPD (chronic obstructive pulmonary disease) (J44.9) Active confirmed Problem Hypothyroidism (47276501) Hypothyroidism (acquired) (E03.9) Active confirmed Problem Hyperlipidemia (19731766) Hyperlipemia, idiopathic familial (E78.5) Active confirmed Problem Acute exacerbation of chronic obstructive airways disease (913033409) COPD exacerbation (J44.1) Active confirmed Problem Chronic insomnia (752870683) Chronic insomnia (F51.04) Active confirmed Problem Adult stuttering (F98.5) Active confirmed Problem Angina at rest (00248411) Angina at rest (I20.8) Active confirmed Problem Lower urinary tract symptoms due to benign prostatic hypertrophy (97759446278546) Benign prostatic hyperplasia with lower urinary tract symptoms (N40.1) Active confirmed Encounters Encounter Location Date Provider Diagnosis [facility] JOVAN [address] [place] [address] 06/26/2024 Provider Migration COPD exacerbation J44.1 ; [...] PANEL, STANDARD (7600) 07/18/2022 COMPREHENSIVE METABOLIC PANEL (92762) CBC (INCLUDES DIFF/PLT) (6399) TSH (899) 07/18/2022 Insurance Providers Payer Name Payer Address Payer Phone Subscriber Number Group Number Insured Name Patient Relationship to Insured Coverage Start Date Coverage End Date A[employer] [facility] [address] [address] [place] [phone] [id number] Balaji Fuller Self - patient is the insured Medical (General) History Medical History History ICD Code COPD Negative Cologuard 07/2022 Surgical History Surgery Date(Month/Year) gallbladder surgery 2014
--- OUTSIDE RECORDS SUMMARY | 2025-01-17 14:50 | XMS_ITS | Encounter Summary ---
Author Organization [employer] ([place], [place], [place], [place]) Address [address] [place] [address] Care Team Providers Care Clothes Drier Assembler Name Role Phone Unavailable Primary Care Provider Unavailabl e Encounter Details Date Type Department Care Team (Late st Contact Info) Description 03/27/2018 Transcribed Document [facility] Family Medicine [facility] [place] [address] ProviderStephan MD [facility] [place] [address] Social History Tobacco Use Types [...] - Stephan ProviderMD - 03/27/2018 1:08 PM TEACHER OF THE HEARING IMPAIRED [address] [place] [address] Patient Information Name: BALAJI CRANDALL [...] Follow these instructions at home: ??? Take ztbe-edu-hrfokhw and prescription medicines only as told by [...] ??? Wash your hands often. Use hand pelt salter if soap and water are not available. [...] 03/10/2006 Document Revised: 07/18/2016 Document Reviewed: 07/05/2015 [employer]ia[employer] Interactive Patient Education ? 2017 Upptalk. Allergies: No Known Medication Allergies Medication Information: Prescription Display albuterol (albuterol CFC free 90 mcg/inh inhalation aerosol with adapter) 2 Puff, Inhalation, QID, PRN as needed for wheezing, # 1 Each, 0 Refill(s), Pharmacy: [facility] 493 chlorpheniramine-hydrocodone (Tussionex PennKinetic 10 mg-8 mg/5 mL oral suspension, extended release) 5 mL, Oral, Q12H, # 120 mL, 0 Refill(s) levoFLOXacin (Levaquin 750 mg oral tablet) 1 Tab, Oral, Tab, [id number], X 7 Day(s), # 7 Tab, 0 Refill(s), Pharmacy: [facility] 493 Home Meds Display budesonide-formoterol (Symbicort 80 [...] verify that BALAJI CRANDALL was seen at [facility] Emergency Department on ,03/27/2018 13:08:40. This is [...] Assistance with quitting is available by contacting 4-694-UPUU-NOW. This is a free resource providing counseling, [...] Electronic Communications Privacy Act 18 U.S.C. ???Sections 3475-4599,?? and contain information intended for the specified [...] sure to sign up for the My [facility] patient portal, which gives you 14/10 access to your medical information ??? including these discharge instructions ??? using your computer, smartphone, or tablet. Just go to MD Revolution to get started. Questions? Call . Acknowledgment [...]
--- OUTSIDE RECORDS SUMMARY | 2025-01-17 14:50 | XMS_ITS | Referral Summary ---
Author Organization [employer] ([place], [place], [place], [place]) Address [address] [place] [address] Care Team Providers Care Curriculum And Assessment Director Name Role Phone Unavailable Primary Care Provider [...]
--- OUTSIDE RECORDS SUMMARY | 2025-01-17 14:50 | XMS_ITS | Encounter Summary ---
Author Organization [employer] ([place], [place], [place], [place]) Address [address] [place] [address] Care Team Providers Care Senior Clinical Research Associate Name Role Phone Unavailable Primary Care Provider Unavailabl e Encounter Details Date Type Department Care Team (Late st Contact Info) Description 03/27/2018 Transcribed Document [facility] Family Medicine [facility] [place] [address] ProviderStephan MD [facility] [place] [address] Social History Tobacco Use Types [...] - Historical ProviderMD - 03/27/2018 1:08 PM SCRIPT SUPERVISOR ED Discharge Vital Signs Entered On: 03/27/2018 [...]
--- OUTSIDE RECORDS SUMMARY | 2025-01-17 14:50 | XMS_ITS | Encounter Summary ---
Author Organization [employer] ([place], [place], [place], [place]) Address [address] [place] [address] Care Team Providers Care One Piece Expansion Maker Hand Name Role Phone Unavailable Primary Care Provider Unavailabl e Encounter Details Date Type Department Care Team (Late st Contact Info) Description 04/06/[address] [facility] Family Medicine [facility] [place] [address] ProviderStephan MD [address] [place] [address] Social History Tobacco Use Types Packs/Day [...] - Stephan ProviderMD - 04/06/2018 6:06 AM PIANO BENCH ASSEMBLER [address] [place] [address] PERSON INFORMATION Name BALAJI CRANDALL Age 48 Years 1970 Sex Male Language Estonian PCP JACQUIE RAE NP-FAM Marital Status Med Service Emergency Medicine Acct# Arrival 04/06/2018 04:58:00 Visit Reason Rib/trunk pain-swelling; Chest pain - Pleuritic; PNEUMONIA GETTING WORSE Acuity 3 - Urgent LOS 000 01:08 Depart Date: 04/06/18 06:06 AM Address: [address] [address] Comment: PROVIDER INFORMATION Provider Role Assigned Unassigned [...]
--- OUTSIDE RECORDS SUMMARY | 2025-01-17 14:50 | XMS_ITS | Clinical Summary ---
Author Organization [facility] Address [address] [place] [address] Care Team Providers Care Maintenance And Engineering Manager Name Role Phone Kendall Ventura MD Primary Care Provider [phone] Allergies No known active allergies Medications Azithromycin [...] 2 (Two) Times a Day. 1 inhaler 9 Active Active Problems Problem Noted Date [...] 07/04/2016 9:11 AM EDT Plan of Treatment Upcoming Encounters Date Type Department Care Team (Late st Contact Info) Description 01/28/2025 10:30 AM EST Office Visit [facility] [address] [place] [address] Diamante Tafoya, VALENTE [address] [facility] [address] [place] [address] Health Maintenance Due Date Last Done Comments Pneumococcal Vaccine 50+ (1 of 2 - PCV) 1987 TDAP/TD VACCINES (1 - Tdap) 1987 COLON CANCER SCREENING 5 YEAR SIGMOIDOSCOPY [address] COLONOGRAPHY 2013 FECAL OCCULT BLOOD TEST 2013 FIT Testing (1 year) 2013 ANNUAL PHYSICAL 07/04/2016 HEPATITIS C SCREENING 07/04/2016 ZOSTER VACCINE (1 of 2) 2018 INFLUENZA VACCINE 10/22/2024 COLOGUARD 07/29/2025 07/29/2022 COLORECTAL CANCER SCREENING 07/29/2025 Procedures Procedure Name Priority Date/Time Associated Diagnosis Comments SCANNED - LABS 01/04/2025 from Last 3 Months Results * LABS SCANNED (01/04/2025) [facility] Onbase LAB BLOOD ORDERABLES Final Re sult from Last 3 Months Insurance [place] [id number] [facility] PPO Member Subscriber Plan / Payer (Ef fective 2016-Present) Name:Balaji Fuller Relation to Subscriber:Self Name:Balaji Fuller Payer ID:[id number] (NAIC) Type:Not on file Address: [facility] [id number] Care Teams Maintenance And Engineering Manager Relationship Specialty Start Date End Date Kendall Ventura MD [address] [place] [address] PCP - General Family Medicine 01/11/25
--- OUTSIDE RECORDS SUMMARY | 2025-01-17 14:50 | XMS_ITS | Encounter Summary ---
Author Organization [employer] ([place], [place], [place], [place]) Address [address] [place] [address] Care Team Providers Care Septic Tank Servicer Name Role Phone Unavailable Primary Care Provider Unavailabl e Encounter Details Date Type Department Care Team (Late st Contact Info) Description 04/06/2018 Transcribed Document [facility] Family Medicine [place] [address] ProviderStephan [place] [address] Social History Tobacco Use Types [...] - Stephan ProviderMD - 04/06/2018 4:58 AM OR NURSE MANAGER ED Assessment Entered On: 04/06/2018 5:33 EST [...] Communication Barrier : None Primary Language : East Timorese Any Spiritual/Cultural Needs or Requests : No [...] - 04/06/2018 5:32 EST Electronically signed by [facility], [facility] Conversion Securities Broker Cerner at 07/10/2022 6:40 PM CDT documented in this encounter Plan of Treatment Not on file documented as of this encounter Visit Diagnoses Not on filedocumented in this encounter
--- OUTSIDE RECORDS SUMMARY | 2025-01-17 14:50 | XMS_ITS | Encounter Summary ---
Author Organization [employer] ([place], [place], [place], [place]) Address [address] [place] [address] Care Team Providers Care Administrative Services Coordinator Name Role Phone Unavailable Primary Care Provider Unavailabl e Encounter Details Date Type Department Care Team (Late st Contact Info) Description 04/06/2018 Transcribed Document [facility] Family Medicine [facility] [place] [address] ProviderStephan MD [facility] [place] [address] Social History Tobacco Use Types [...] - Historical ProviderMD - 04/06/2018 6:00 AM SENIOR SOFTWARE SYSTEMS ENGINEER Electronically signed by [facility], [facility] Conversion Faculty Research Assistant Cerner at 07/10/2022 6:54 PM CDT documented in this encounter Plan of Treatment Not on file documented as of this encounter Visit Diagnoses Not on filedocumented in this encounter
--- OUTSIDE RECORDS SUMMARY | 2025-01-17 14:50 | XMS_ITS | Encounter Summary ---
Author Organization [employer] ([place], [place], [place]) Address [address] [place] [address] Care Team Providers Care Computer Help Desk Specialist Name Role Phone Unavailable Primary Care Provider Unavailabl e Encounter Details Date Type Department Care Team (Late st Contact Info) Description 03/27/2018 Transcribed Document [facility] [place] [facility] [place] [address] ProviderStephan MD [address] [place] [address] Social History Tobacco Use Types Packs/Day [...] - Stephan ProviderMD - 03/27/2018 11:04 AM MGMT ANALYST ED Triage Entered On: 03/27/2018 11:13 EST Performed On: 03/27/2018 11:08 EST by TOMAS MARIE Rn ED Triage Across the Room Triage Date/Time : 03/27/2018 11:08 EST Chief Complaint : Co L rib cage pain, states I cracked my ribs coughing . Was seen at [facility] on 03/18 for the same, feeling worse TOMAS MARIE Rn - 03/27/2018 11:08 EST DCP GENERIC CODE Tracking Acuity : 3 - Urgent Tracking Group : [facility] ED East TOMAS MARIE Rn - 03/27/2018 [...] COPD (chronic obstructive pulmonary disease) (SNOMED CT :20278069 ) Name of Problem: COPD (chronic obstructive pulmonary disease) ; Recorder: TOMAS MARIE Rn; Confirmation: Confirmed ; Classification: Medical ; Code: [id number] ; Contributor System: Novel SuperTV ; Last Updated: 03/27/2018 11:12 EST ; Life Cycle Date: 03/27/2018 ; Life Cycle Status: Active ; Vocabulary: SNOMED CT Diagnoses(Active) Rib/trunk pain-swelling Date: 03/27/2018 ; Diagnosis Type: Reason For Visit ; Confirmation: Complaint of ; Clinical Dx: Rib/trunk pain-swelling ; Classification: Medical ; Clinical Service: Emergency medicine ; Code: PNED ; Probability: 0 ; Diagnosis Code: [id number] ED Height and Weight Height Source : Stated Height Entry Format : [place] Height, Feet : 5 ft(Converted to: 152 cm, 60 Inch) Height, Inches : 6 Inch(Converted to: 0 ft 6 Inch, 15.24 cm) Clinical Height : 167.64 cm Weight Source, ED : Critical estimated dosing weight Weight Entry Format : [place] Weight, Pounds : 195 lb Clinical Dosing Weight : 88.64 kg Body Surface Area (BSA) : 1.98 m2 Body Mass Index : 31.5 kg/m2 (HI) [place] Body Weight (IBW) : 62.88 kg TOMAS MARIE Rn - 03/27/2018 11:08 EST documented in this encounter Plan of Treatment Not on file documented as of this encounter Visit Diagnoses Not on filedocumented in this encounter
--- OUTSIDE RECORDS SUMMARY | 2025-01-17 14:50 | XMS_ITS | Encounter Summary ---
Author Organization [employer] ([place], [place], [place], [place]) Address [address] [place] [address] Care Team Providers Care Case Checker Name Role Phone Unavailable Primary Care Provider Unavailabl e Encounter Details Date Type Department Care Team (Late st Contact Info) Description 04/06/2018 Transcribed Document [facility] [place] [facility] [place] [address] ProviderStephan MD [address] [place] [address] Social History Tobacco Use Types Packs/Day [...] - Stephan ProviderMD - 04/06/2018 4:58 AM AIR TOOL OPERATOR ED Triage Entered On: 04/06/2018 5:15 EST Performed On: 04/06/2018 5:12 EST by Nora Tejeda RN ED Triage Across the Room Triage Date/Time : 04/06/2018 5:12 EST Chief Complaint : c/o worsening chest wall pain. pt recently dx with pnumonia. pt said no better. Nora Tejeda RN - 04/06/2018 5:12 EST DCP GENERIC CODE Tracking Acuity : 3 - Urgent Tracking Group : [facility] Nora Tejeda RN - [...] COPD (chronic obstructive pulmonary disease) (SNOMED CT :70139045 ) Name of Problem: COPD (chronic obstructive pulmonary disease) ; Recorder: TOMAS MARIE Rn; Confirmation: Confirmed ; Classification: Medical ; Code: [id number] ; Contributor System: Clarassance ; Last Updated: 03/27/2018 11:12 EST ; Life Cycle Date: 03/27/2018 ; Life Cycle Status: Active ; Vocabulary: SNOMED CT Diagnoses(Active) Chest pain - Pleuritic Date: 04/06/2018 ; Diagnosis Type: Reason For Visit ; Confirmation: Complaint of ; Clinical Dx: Chest pain - Pleuritic ; Classification: Medical ; Clinical Service: Non-Specified ; Code: PNED ; Probability: 0 ; Diagnosis Code: [id number] ED Height and Weight Height Source : Stated Height Entry Format : [place] Height, Feet : 5 ft(Converted to: 152 cm, 60 Inch) Height, Inches : 6 Inch(Converted to: 0 ft 6 Inch, 15.24 cm) Clinical Height : 167.64 cm Weight Source, ED : Critical estimated dosing weight Weight Entry Format : [place] Weight, Pounds : 195 lb Clinical Dosing Weight : 88.64 kg Body Surface Area (BSA) : 1.98 m2 Body Mass Index : 31.5 kg/m2 (HI) [place] Body Weight (IBW) : 62.88 kg Nora [...] 04/06/2018 5:12 EST Electronically signed by [facility] Conversion Treer Cerner at 07/10/2022 6:37 PM CDT documented in this encounter Plan of Treatment Not on file documented as of this encounter Visit Diagnoses Not on filedocumented in this encounter
--- OUTSIDE RECORDS SUMMARY | 2025-01-17 14:50 | XMS_ITS | Encounter Summary ---
Author Organization [employer] ([place], [place], [place], [place]) Address [address] [place] [address] Care Team Providers Care Air Traffic Systems Technician Name Role Phone Unavailable Primary Care Provider Unavailabl e Encounter Details Date Type Department Care Team (Late st Contact Info) Description 04/05/2018 Transcribed Document [facility] [place] [facility] [place] [address] ProviderStephan MD [facility] [address] Social History Tobacco Use Types [...] - Stephan ProviderMD - 04/05/2018 2:52 PM MANAGER CATH LAB [address] [place] [address] Patient Information Name: BALAJI CRANDALL Age: 48 Years Date of : 1970 Arrival Time: 04/05/2018 13:55:00 Diagnosis Primary Care Physician: JESSICA SPEAR DR Provider Information Primary Provider: Secondary Provider: RAZ BALAJI Malik has been given the following list [...] verify that BALAJI CRANDALL was seen at [facility] Emergency Department on ,04/05/2018 14:52:45. This [...] Assistance with quitting is available by contacting 9-475-CHMP-NOW. This is a free resource providing counseling, [...] Electronic Communications Privacy Act 18 U.S.C. ???Sections 0013-9928,?? and contain information intended for the specified [...] sure to sign up for the My [facility] patient portal, which gives you 14/10 access to your medical information ??? including these discharge instructions ??? using your computer, smartphone, or tablet. Just go to R[employer] to get started. Questions? Call . Acknowledgment [...]
--- OUTSIDE RECORDS SUMMARY | 2025-01-17 14:50 | XMS_ITS | Encounter Summary ---
Author Organization [employer] ([place], [place], [place], [place]) Address [address] [place] [address] Care Team Providers Care Chief Clinical Officer Name Role Phone Unavailable Primary Care Provider Unavailabl e Encounter Details Date Type Department Care Team (Late st Contact Info) Description 03/27/2018 Transcribed Document [facility] [place] [facility] [place] [address] ProviderStephan MD [facility] [place] [address] Social History Tobacco Use Types [...] - Historical ProviderMD - 03/27/2018 12:46 PM TITLE SEARCHER Patient: BALAJI CRANDALL Age: 47 years Sex: Male : 1970 Associated Diagnoses: Cough; Pneumonia; Elevated blood pressure reading Author: CLARE BROCK PA-EMR Basic Information Additional information: Chief Complaint from Nursing Triage Note : Chief Complaint 03/27/2018 11:08 EST Chief Complaint Co L rib cage pain, states I cracked my ribs coughing . [facility], feeling worse [...] Source Stated Height Entry Format [place] Height/Length, ISRAELI (ft) 5 ft Height/Length ISRAELI 6 Inch CLINICALHEIGHT 167.64 cm [place] Body Weight 62.88 kg Weight Source, ED Critical estimated dosing weight Weight Entry Format [place] Weight Hungarian lb 195 lb CLINICALWEIGHT 88.64 kg Body [...] Chest X-Ray: Radiology Results (Last 48 hours) [id number] -- 03/27/2018 11:04 CT Chest WO (03/27/2018 [...] Improved, Stable. Disposition: Medically cleared. Prescriptions: Prescription Systems Test Analyst Pharmacy: T[facility] 10 mg-8 mg/5 mL oral suspension, extended release (Prescribe): 5 mL, Oral, Q12H, 120 mL, 0 Refill(s) Levaquin 750 mg oral tablet (Prescribe): 1 Tab, Oral, [id number], for 7 Day(s), 7 Tab, 0 Refill(s) albuterol CFC free 90 mcg/inh inhalation aerosol with adapter (Prescribe): 2 Puff, Inhalation, QID, PRN: as needed for wheezing, 1 Each, 0 Refill(s), ekasper [id number]. Patient was given the following educational materials: [...]
--- OUTSIDE RECORDS SUMMARY | 2025-01-17 14:50 | XMS_ITS | Clinical Summary ---
Author Organization [employer] ([place], [place], [place], [place]) Address [address] [place] [address] Care Team Providers Care Moss Bleacher Name Role Phone Unavailable Primary Care Provider [...]
--- OUTSIDE RECORDS SUMMARY | 2025-01-17 14:50 | XMS_ITS | Encounter Summary ---
Author Organization [employer] ([place], [place], [place], [place]) Address [address] [place] [address] Care Team Providers Care Horticulture Professor Name Role Phone Unavailable Primary Care Provider Unavailabl e Encounter Details Date Type Department Care Team (Late st Contact Info) Description 04/05/2018 Transcribed Document [facility] [place] [facility] [place] [address] ProviderStephan MD [facility] [place] [address] Social History Tobacco Use Types [...] - Historical ProviderMD - 04/05/2018 2:52 PM OUTCOMES ANALYST [address] [place] [address] PERSON INFORMATION Name BALAJI CRANDALL Age 48 Years 1970 Sex Male Language Cook Islander PCP BEATRIS, JESSICA PRIM Marital Status Med Service Emergency Medicine Acct# Arrival 04/05/2018 13:55:00 Visit Reason DX LAST WEEK FOR PNEUMONIA, NO BETTER Acuity LOS 000 00:57 Depart Date: 04/05/18 02:14 PM Address: [address] [id number] Comment: PROVIDER INFORMATION DIAGNOSIS PHYS DOC NOTES VITALS INFORMATION Vital Sign Triage Latest Temp Source Temp Mode Temp Fahrenheit Temp Celsius 02 Sat Respiratory Rate Peripheral Pulse Rate Apical Heart Rate Blood Pressure / / Comment: MEDICAL INFORMATION Allergy Info: No Known Medication Allergies Medications: Comment: DISCHARGE INFORMATION Discharge Disposition: Left Without Being Seen Discharge Location: PATIENT EDUCATION INFORMATION Instructions: Follow up: Comment: documented in this encounter Plan of Treatment Not on file documented as of this encounter Visit Diagnoses Not on filedocumented in this encounter
--- OUTSIDE RECORDS SUMMARY | 2025-01-17 14:50 | XMS_ITS | Encounter Summary ---
Author Organization [employer] ([place], [place], [place], [place]) Address [address] [place] [address] Care Team Providers Care American Sign Language Interpreter Name Role Phone Unavailable Primary Care Provider Unavailabl e Encounter Details Date Type Department Care Team (Late st Contact Info) Description 03/27/2018 Transcribed Document [facility] [place] [facility] [place] [address] ProviderStephan MD [facility] [place] [address] Social History Tobacco Use Types [...] - Stephan ProviderMD - 03/27/2018 11:04 AM FAST FOOD SERVER ED Assessment Entered On: 03/27/2018 12:50 EST [...] Communication Barrier : None Primary Language : [place] Any Spiritual/Cultural Needs or Requests : No [...]
--- OUTSIDE RECORDS SUMMARY | 2025-01-17 14:50 | XMS_ITS | Encounter Summary ---
Author Organization [employer] ([place], [place], [place], [place]) Address [address] [place] [address] Care Team Providers Care Surgical Brace Maker Name Role Phone Unavailable Primary Care Provider Unavailabl e Encounter Details Date Type Department Care Team (Late st Contact Info) Description 04/05/2018 Transcribed Document [facility] [place] [address] [place] [address] ProviderStephan MD [facility] [address] Social History Tobacco Use Types [...] - Historical ProviderMD - 04/05/2018 2:14 PM FLOWER PLANTER ED Discharge Entered On: 04/05/2018 14:52 EST Performed On: 04/05/2018 14:14 EST by TOMAS MARIE Rn Discharge Process Patient Disposition : AMA/Elope/LWBS Personal Belongings With Patient : Yes TOMAS MARIE Rn - 04/05/2018 14:51 EST LWBS/Elopement/AMA Patient Left Prior To Medical Screening : Unseen Asked to Sign LWBS Form : Form signed TOMAS MARIE Rn - 04/05/2018 14:51 EST documented in this encounter Plan of Treatment Not on file documented as of this encounter Visit Diagnoses Not on filedocumented in this encounter
--- OUTSIDE RECORDS SUMMARY | 2025-01-17 14:50 | XMS_ITS | Encounter Summary ---
Author Organization [employer] ([place], [place], [place], [place]) Address [address] [place] [address] Care Team Providers Care Teletray Operator Name Role Phone Unavailable Primary Care Provider Unavailabl e Encounter Details Date Type Department Care Team (Late st Contact Info) Description 04/06/2018 Transcribed Document [facility] [place] [facility] [place] [address] ProviderStephan MD [facility] [place] [address] Social History Tobacco Use Types [...] - Stephan ProviderMD - 04/06/2018 6:00 AM OPEN HEARTH FURNACE LABORER ED Discharge Entered On: 04/06/2018 6:01 EST Performed On: 04/06/2018 6:00 EST by VANIA SANDOVAL field sales agent Process Patient Disposition : Discharge Personal Belongings [...] 04/06/2018 6:00 EST Electronically signed by Vickie [facility] Conversion Barbering Instructor Cerner at 07/10/2022 6:32 PM CDT documented in this encounter Plan of Treatment Not on file documented as of this encounter Visit Diagnoses Not on filedocumented in this encounter
--- NOTE | 2025-01-17 15:30 | CT_ITS ---
FINAL REPORT TECHNIQUE: Axial images were obtained from the lung apex to the mid abdomen by computed tomography. This study was performed with techniques to keep radiation doses as low as reasonably achievable (ALARA). Individualized dose reduction techniques using automated exposure control or adjustment of mA and/or kV according to the patient's size were employed. CLINICAL HISTORY: lung cancer screening patient is a current smoker and smokes 1 pack per day. patient has been a smoker for 35-40 years. patient stated that his father had lung cancer. COMPARISON: 07/18/2023 FINDINGS: CHEST CT LOW DOSE CTDI vol (mGy): 2.90 DLP (mGy-cm): 102.12 There is no axillary adenopathy. There is no hilar or mediastinal adenopathy. The heart is normal in size. There is no pericardial or pleural effusion. Again identified is a nodule in the medial right upper lobe measuring 4 mm on image 27 of series 3. Limited images of the upper abdomen are unremarkable. IMPRESSION: Stable medial right upper lobe nodule. Lung RADS category 2. Recommend 12 month follow-up low-dose chest CT. Reviewed, Interpreted and Dictated by Greg Velazquez MD Transcribed by Luz Marina Ferraro Authenticated and [facility]
== END 2025-01-17 23:59 | disposition home or self-care (01) ==
LOC: RAD 13:56
PROVIDERS: PCP Family Medicine; Visit Provider Family Medicine
DX: Z12.2 Encounter for screening for malignant neoplasm of respiratory organs (principal); F17.210 Nicotine dependence, cigarettes, uncomplicated; R91.1 Solitary pulmonary nodule; Z80.1 Family history of malignant neoplasm of trachea, bronchus and lung
CPT/HCPCS: 71271